=== PATIENT | female | born 1935 ===

== ENCOUNTER 2017-10-14 09:18 | Inpatient (IN) | payer MEDICARE ==
[2017-10-14] MEDS ORDERED: Labetalol HCl 100 MG/20 ML VIAL ONE (09:54)
[2017-10-14] MEDS ORDERED: Acetaminophen 325 MG TAB PO PRN (12:09)
[2017-10-14] MEDS ORDERED: Loratadine 10 MG TAB PO PRN (12:09)
[2017-10-14] MEDS ORDERED: Mag-Al 1200 mg/1200 mg/30 ML UDCUP PO PRN (12:09)
[2017-10-14] MEDS ORDERED: Chloraseptic Spray 180 ml Bottle PO PRN (12:09)
[2017-10-14] MEDS ORDERED: Ondansetron ODT 4 MG TAB PO PRN (12:09)
[2017-10-14] MEDS ORDERED: Loperamide HCl 2 MG CAP PO PRN (12:09)
[2017-10-14] MEDS ORDERED: Artificial Tears 18 DROP/0.9 ML EA EYE PRN (12:09)
[2017-10-14] MEDS ORDERED: Zolpidem Tartrate 5 MG TAB PO PRN (12:09)
[2017-10-14] MEDS ORDERED: Ondansetron HCl/PF 4 MG/2 ML Vial IVP PRN (12:09)
[2017-10-14] MEDS ORDERED: Nitroglycerin 0.4 MG TAB (25 Tab Bottle) SL PRN (12:09)
[2017-10-14] MEDS ORDERED: Milk Of Magnesia 30 ML UDCUP PO PRN (12:09)
[2017-10-14] MEDS ORDERED: Senokot 8.6 MG TAB PO PRN (12:09)
[2017-10-14] MEDS ORDERED: Eucerin (Mineral Oil/Petrolatum,White) 30 gm Jar TOP PRN (12:09)
[2017-10-14] MEDS ORDERED: hydrALAZINE 20 MG/ML VIAL SLOW IVP PRN (12:09)
[2017-10-14] MEDS ORDERED: Sodium Chloride 0.65% Nasal 44 ML BOT EA NARE PRN (12:09)
[2017-10-14] MEDS ORDERED: HYDROcodone/Acetaminophen 5/325 mg Tablet PO PRN (12:09)
[2017-10-14] MEDS ORDERED: Lisinopril 10 MG TAB PO SCH (12:15)
--- NOTE | 2017-10-14 12:38 | CT ---
CT ANGIOGRAM OF THE HEAD: HISTORY: Left-sided hemianopsia. Change in peripheral vision. COMPARISON: None. TECHNIQUE: CT angiogram of head is performed in the axial plane after IV contrast. Initial noncontrast head CT is performed. FINDINGS: There is loss of shepard-white matter differentiation involving the right frontal precentral cortex. Fi ndings may represent an acute infarct. There is no parenchymal hemorrhage. No extraaxial hematoma. No midline shift. Basilar cisterns are patent. Calvarium is intact. Adequate aeration of the sinuses and mastoid air cells. On the postcontrast images, there is no abnormal enhancement. CT ANGIOGRAM: There is symmetric enhancement and luminal diameter of the distal cervical and intracranial internal carotid arteries. Atherosclerosis of both cavernous segments is noted. There is symmetric enhancement of the A1 and M1 segments. Proximal A2 segments and proximal MCA bran ches are unremarkable. The right cervicovertebral artery is dominant. Both PICA artery origins are unremarkable. Both vert ebral arteries supply a normal-appearing basilar artery. The right P1 segment has appropriate enhanc ement and luminal diameter. 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 IMPRESSION: 1. No significant stenosis at the level of the [place]. 2. Loss of shepard-white matter differentiation involving the right frontal lobe, precentral gyrus. Th e possibility of an acute infarct in this region is raised. MRI is recommended. Results of the study were discussed with Dr. Cruz 10/14/17 at 10:15 a.m. DESHAWN REZA POS: DHRUV
[2017-10-14] MEDS ORDERED: Lorazepam 2 MG/ML VIAL SLOW IVP PRN (13:29)
[2017-10-14] MEDS ORDERED: ISOVUE-370 76%-LOCM 1 ML ONE (13:34)
--- NOTE | 2017-10-14 14:07 | HP ---
PRIMARY CARE PHYSICIAN: Dr. Gorge Urbano in [place]. REASON FOR ADMISSION: Stroke-like symptoms. HISTORY OF PRESENT ILLNESS: An 82-year-old female who has underlying history of COPD, coronary artery disease who presented to [facility] for stroke-like symptoms. Patient reports that this morning she was perfectly fine. She was going to bathroom. At that time, she felt all of a sudden stroke-like symptoms. She was feeling blurred vision. She was feeling difficulty coordination. She was feeling shaky all over. She was not able to use her hand. She was trying to call 911, but she was not able to see numbers well and she was not able to use her phone. She ultimately able to call paramedics. Subsequently, the patient was brought to [facility]. The patient was found with peripheral vision on the left side with hemianopsia. At [facility], she had CT brain which showed hypodensity within the posterior right frontal lobe consistent with age indeterminate infarction, chronic small vessel ischemic changes. Her chest x-ray was unremarkable other than bibasilar atelectasis. The patient was not given any intervention at [facility]. Subsequently, this patient was transferred to our hospital. At [place] [facility], the patient was hypertensive with blood pressure 183/ 87. She had routine blood test done, which was pretty much unremarkable. In our emergency room, subsequently, she had CT [place] [facility] [place], which was negative for any blood clot. Patient was hypertensive in our emergency room as well. Patient did not have any focal motor weakness, but patient was having difficulty performing cerebellar sign. She was having incoordination. Patient was admitted to stroke floor. PAST MEDICAL HISTORY: COPD. Patient reports that she had a heart murmur for a long period of time. She has CAD, hypertension, hypothyroidism, osteopenia and osteoarthritis, dyslipidemia, allergic rhinitis, gastroesophageal reflux disease , osteoporosis. PAST SURGICAL HISTORY: CABG, carotid endarterectomy, hysterectomy, lumpectomy x2. PAST PSYCHIATRIC HISTORY: Reviewed and negative. SOCIAL HISTORY: Patient is a former smoker. She quit smoking in 2010. She drinks alcohol occasionally. She is and lives at home by herself. No history of any illicit drug abuse. FAMILY HISTORY: No strong family history of premature coronary artery disease, stroke or cancer. ALLERGIES: Patient is allergic to BACTRIM. REVIEW OF SYSTEMS: The following complete review of systems was negative, unless otherwise mentioned in the HPI or below: Constitutional: Weight loss or gain, ability to conduct usual activities. Skin: Rash, itching. Eyes: Double vision, pain. ENT/Mouth: Nose bleeding, neck stiffness, pain, tenderness. Cardiovascular: Palpitations, dyspnea on exertion, orthopnea. Respiratory: Shortness of breath, wheezing, cough, hemoptysis, fever or night sweats. Gastrointestinal: Poor appetite, abdominal pain, heartburn, nausea, vomiting, constipation, or diarrhea. Genitourinary: Urgency, frequency, dysuria, nocturia. Musculoskeletal: Pain, swelling. Neurologic/Psychiatric: Anxiety, depression. Allergy/Immunologic: Skin rash, bleeding tendency. Please see my HPI for pertinent positive and negative. All other review of systems reviewed and negative except as mentioned in the HPI. CURRENT HOME MEDICATIONS: Aspirin 81 mg p.o. daily, vitamin C 500 mg p.o. daily , atenolol 25 mg p.o. every other day, Azelastine nasal spray daily, Symbicort 2 puff inhalation daily, calcium with vitamin D 1 tablet p.o. daily, cetirizine 10 mg daily, vitamin D3 400 unit p.o. daily, coenzyme Q10 50 mg p.o. daily, Ferrous sulfate 325 mg p.o. daily, Flonase nasal spray daily, Lasix 40 mg p.o. daily, garlic 1 capsule daily, Singulair 10 mg p.o. daily, multivitamin 1 tablet p.o. daily, fish oil 1 capsule daily; Livalo 2 mg Thursday, Thursday, Thursday; potassium chloride 20 mEq p.o. daily, Zantac 150 mg p.o. b.i.d., Actonel 150 mg p.o. daily, Faber thyroid 120 mg p.o. daily, vitamin B complex 1 tablet p.o. daily. EMERGENCY ROOM COURSE: Patient is given IV fluid at [place] [facility]. The patient is given aspirin 324 mg, DuoNeb therapy, and Tylenol 1 gram. PHYSICAL EXAMINATION: VITAL SIGNS: In our emergency room, blood pressure 198/90, pulse 103, respiratory rate 20, temperature 98.4, saturation 92% on room air, weight 71.6 kilograms. GENERAL: Patient is currently alert, awake, no obvious acute distress. HEENT: Head: Normocephalic, atraumatic. Eyes: Pupils round, reactive to light. Extraocular muscle intact. No nystagmus. ENT: Oropharynx within normal limits. Moist mucous membranes. No oral lesion, no pharyngeal erythema , no exudate. NECK: Supple, no JVD, no thyromegaly, no carotid bruit, no jugular venous distention. LUNGS: Clear to auscultation. Systolic murmur noted all over the precordium. No gallop, no rub. ABDOMEN: Soft, bowel sounds present, nontender, nondistended. No organomegaly , no mass, no suprapubic tenderness. BACK: Unremarkable, no CVA tenderness. EXTREMITIES: Upper extremity, passive movement of all joints are normal. Lower extremity, no edema. Good peripheral pulsation. SKIN: No skin rash. HEMATOLOGICAL: No lymphadenopathy. PSYCHIATRIC: Anxious affect. NEUROLOGIC: The patient does have reduced vision on the left eye, incoordination on the left side. SIGNIFICANT LABORATORY DATA AND IMAGING: Urinalysis at [facility] is unremarkable. TSH 0.02. BNP 138, troponin I 0.04, glucose 150, BUN 15, creatinine 0.76. Sodium 140, potassium 3.6, chloride 103, carbon dioxide 23, calcium 9.6, alkaline phosphatase 103, AST 22, ALT 16, total protein 7.4, albumin 4.1, magnesium 2.3. CBC: WBC 6.6, hemoglobin 15.7, platelet 230. CT brain showed hypodensity within the posterior right frontal lobe consistent with acute/subacute indeterminate infarction, chronic small vessel ischemic changes. Chest x-ray, unremarkable. EKG showing normal sinus rhythm without any acute ischemic changes. ASSESSMENT AND PLAN: 1. Stroke-like symptoms with abnormal CT brain, hypodensity in the posterior frontal lobe concerning for cerebrovascular accident. 2. Chronic obstructive pulmonary disease. 3. Coronary artery disease with a history of coronary artery bypass grafting. 4. Heart murmur, rule out valvular heart disease. 5. Dyslipidemia. 6. Claustrophobia. 7. Gastroesophageal reflux disease. 8. Hypothyroidism. 9. Osteopenia/osteoporosis. 10. Hypertension with hypertensive urgency. 11. Gastroesophageal reflux disease. PLAN: Admission to stroke floor, neuro check q.4 hourly. Neurology is not available today and tomorrow, so no Neurology consult. We will obtain MRI brain. The patient is claustrophobic and that is why she will need lorazepam 2 mg IV before MRI. If MRI is not possible because of claustrophobia, then we will avoid doing under anesthesia. We will continue with aspirin 325 mg p.o. daily. We will continue Livalo 2 mg p.o. on Thursday, Thursday, and Thursday. Check lipid profile, homocysteine level tomorrow. We will resume patient's selected home medications. DuoNeb therapy will be given. Dulera inhalation will be given. Entire stroke team will see this patient and based on above-mentioned investigation, we will consider discharge plan. We will also obtain carotid Doppler as well as echocardiography for further evaluation and we will monitor on telemetry floor. Plan of care discussed with the patient in detail. Deep venous thrombosis prophylaxis. Lovenox 40 mg subcu daily. Gastrointestinal prophylaxis. Pepcid 20 mg p.o. b.i.d. CODE STATUS: The patient is FULL CODE. Patient does not have any surrogate decision maker, though if patient does not make a decision by herself, then, her son can make decision. Disposition plan based on clinical course. We are expecting patient's stay in hospital more than 2 midnights. Plan of care discussed with the patient in detail. MTDD
--- NOTE | 2017-10-14 15:24 | ULT ---
CAROTID DOPPLER: Ultrasound doppler study with spectral analysis and velocity recordings obtained on the extracranial carotid arteries. Indication: CVA. FINDINGS: Scattered echogenic plaque seen in both carotid systems. Velocities are borderline in the right inter nal carotid artery recorded at 123 cm/sec systolic. The velocity is approaching hemodynamically signi ficance at approximately 50% diameter stenosis. Left ICA velocities are within normal range. ECA velocities are increased bilaterally. The vertebrals are antegrade. IMPRESSION: Upper normal velocities in the right internal carotid artery. Scattered echogenic plaque bilaterally. POS: DHRUV
[2017-10-14 15:41] VITALS: BMI 27.7
--- NOTE | 2017-10-14 16:46 | MRI ---
MRI BRAIN WITHOUT CONTRAST: HISTORY: CVA. Left-sided hemianopsia. COMPARISON: CTA same day. FINDINGS: There are multifocal acute infarctions seen on the diffusion weighted imaging sequence. This involve s the right precentral gyrus as well as the right medial occipital lobe and the right thalamus. Ther e is also infarction of the inferior right temporal lobe and mesial right temporal lobe. The susceptibility may be due to abnormal areas of hemorrhage. Old left cerebellar infarction. [place]anne ventricular and deep white matter microangiopathic changes. Orbits are normal. No hydrocephalus. No midline shift or mass effect. IMPRESSION: Multifocal right-sided infarctions involving the right mesial temporal lobe, inferior temporal lobe, medial occipital lobe, and precentral gyrus of the frontal lobe. This may be the sequelae of atherom atous emboli. POS: DHRUV
[2017-10-14] MEDS ORDERED: Atorvastatin Calcium 40 MG TAB PO SCH (21:00)
[2017-10-14] MEDS: Famotidine 20 MG TAB PO SCH (21:29)
[2017-10-15 05:25] LABS: #Basophils 0.1 thou/uL (0.0-0.2); #Eosinphils 0.2 thou/uL (0.0-0.7); #Lymphocytes 1.4 thou/uL (1.20-3.40); #Monocytes 0.6 thou/uL (0.11-0.59); #Neutrophils 5.9 thou/uL (1.40-6.50); %Basophils 0.9 % (0.0-1.0); %Eosinophils 2.8 % (0.0-10.0); %Monocytes 6.8 % (0.0-10.0); %Neutrophils 72.6 % (42.0-75.0); Hemoglobin 14.7 g/dL (12.0-16.0); Mean Corpuscular HGB CONC 34.2 g/dL (32.0-36.0); Mean Corpuscular Hemoglobin 31.6 pg (27.0-31.0); Mean Corpuscular Volume 92.3 fl (81.0-99.0); Mean Platelet Volume 7.7 fL (7.4-10.4); Platelet Count 179 thou/uL (130-400); Red Blood Cell (RBC) Count 4.65 mill/uL (4.20-5.40); White Blood Cell (WBC) Count 8.2 thou/uL (4.8-10.8)
[2017-10-15 05:41] LABS: ALT (SGPT) 14 U/L (8-55); AST (SGOT) 21 U/L (5-34); Albumin 3.6 g/dL (3.4-4.8); Alkaline Phosphatase 82 U/L (40-150); Anion Gap 12 mmol/L (10-20); BUN (Urea Nitrogen) 8 mg/dL (9.8-20.1); Bilirubin, Total 0.6 mg/dL (0.2-1.2); Calc. Creatinine Clearance 78 mL/min (70-130); Calcium 9.3 mg/dL (7.8-10.44); Carbon Dioxide 25 mmol/L (23-31); Cardiac Risk 2.4 (Less than 4.5); Chloride 105 mmol/L (98-107); Cholesterol 181 mg/dl (< 200 Desired); Estimated GFR-MDRD Greater than 90; Globulin 2.7 g/dL (2.4-3.5); Glucose 136 mg/dL (83-110); HDL Cholesterol 76 mg/dL (>60 Neg Risk); LDL Cholesterol, Calculated 90 mg/dL; Potassium 3.9 mmol/L (3.5-5.1); Protein, Total 6.3 g/dL (6.0-8.3); Sodium 138 mmol/L (136-145); Triglycerides 73 mg/dL (Less than 150)
[2017-10-15] MEDS ORDERED: Doxylamine 25 MG TAB PO PRN (07:18)
[2017-10-15] MEDS ORDERED: Cetirizine HCl 10 MG TAB PO SCH (09:00)
[2017-10-15] MEDS ORDERED: Non-Formulary Item 1 EACH (Ubidecarenone [Coq-10] 200 MG) PO SCH (09:00)
[2017-10-15] MEDS ORDERED: Non-Formulary Item 1 EACH (Budesonide-Formoterol [Symbicort 160-4.5] 2 INHALER) INH SCH (09:00)
[2017-10-15] MEDS ORDERED: Non-Formulary Item 1 EACH (Pitavastatin Calcium 2 MG) PO SCH (09:00)
[2017-10-15] MEDS ORDERED: PSYLLIUM HUSK PO SCH (09:00)
[2017-10-15] MEDS ORDERED: ACIDOPH PARACASEI B LACTIS PO SCH (09:00)
[2017-10-15] MEDS ORDERED: Non-Formulary Item 1 EACH (Potassium Chloride [Potassium Chloride] 10 MEQ) PO SCH (09:00)
--- NOTE | 2017-10-15 10:08 | PDOC.PN ---
- Subjective Encounter Start Date: 10/15/17 Encounter Start Time: 06:40 -: old records requested/rev Patient seen and examined for acute CVA. No new complaints. No overnight events - Objective Resuscitation Status: Resuscitation Status FULL:Full Resuscitation MAR Reviewed: Yes Vital Signs & Weight: Vital Signs (12 hours) Temp Pulse Resp BP BP Pulse Ox 10/15/17 07:23 98.2 F 80 20 138/57 L 92 L 10/15/17 04:54 92 L 10/15/17 03:35 99.2 F 85 16 140/69 89 L 10/14/17 23:35 99.0 F 85 16 131/64 94 L Weight Weight 156 lb 8.451 oz Result Diagrams: 10/15/17 04:48 10/15/17 04:48 Radiology Reviewed by me: Yes (MRI brain-multifocal infract on right side) EKG Reviewed by me: Yes (nsr) Phys Exam - Physical Examination Constitutional: NAD HEENT: PERRLA, moist MMs, sclera anicteric Neck: no nodes, no JVD, supple, full ROM Respiratory: no wheezing, no rales, no rhonchi, clear to auscultation bilateral Cardiovascular: RRR, no significant murmur, no rub Gastrointestinal: soft, non-tender, no distention, positive bowel sounds Musculoskeletal: no edema, pulses present Neurological: moves all 4 limbs Lymphatic: no nodes Psychiatric: normal affect, A&O x 3 Skin: no rash, normal turgor, cap refill <2 seconds Dx/Plan (1) Acute CVA (cerebrovascular accident) Code(s): I63.9 - CEREBRAL INFARCTION, UNSPECIFIED Status: Acute (2) Anxiety and depression Code(s): F41.9 - ANXIETY DISORDER, UNSPECIFIED; F32.9 - MAJOR DEPRESSIVE DISORDER, SINGLE EPISODE, UNSPECIFIED Status: Chronic (3) CAD (coronary artery disease) Code(s): I25.10 - ATHSCL HEART DISEASE OF [place] CORONARY ARTERY W/O ANG PCTRS Status: Chronic (4) COPD (chronic obstructive pulmonary disease) Status: Chronic (5) Carotid atherosclerosis Code(s): I65.29 - OCCLUSION AND STENOSIS OF UNSPECIFIED CAROTID ARTERY Status : Chronic (6) Dyslipidemia Code(s): E78.5 - HYPERLIPIDEMIA, UNSPECIFIED Status: Chronic (7) Hypertension Code(s): I10 - ESSENTIAL (PRIMARY) HYPERTENSION Status: Chronic (8) Hypothyroidism Code(s): E03.9 - HYPOTHYROIDISM, UNSPECIFIED Status: Chronic - Plan cont current plan of care, plan discussed w/ family, 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 Review of Systems - Review of Systems Eyes: negative: Pain, Vision Change, Conjunctivae Inflammation, Eyelid Inflammation, Redness, Other ENT: negative: Ear Pain, Ear Discharge, Nose Pain, Nose Discharge, Nose Congestion, Mouth Pain, Mouth Swelling, Throat Pain, Throat Swelling, Other Respiratory: negative: Cough, Dry, Shortness of Breath, Hemoptysis, SOB with Excertion, Pleuritic Pain, Sputum, Wheezing Cardiovascular: negative: chest pain, palpitations, orthopnea, paroxysmal nocturnal dyspnea, edema, light headedness, other Gastrointestinal: negative: Nausea, Vomiting, Abdominal Pain, Diarrhea, Constipation, Melena, Hematochezia, Other Genitourinary: negative: Dysuria, Frequency, Incontinence, Hematuria, Retention , Other Musculoskeletal: negative: Neck Pain, Shoulder Pain, Arm Pain, Back Pain, Hand Pain, Leg Pain, Foot Pain, Other Skin: negative: Rash, Lesions, Matthew, Bruising, Other Neurological: Incoordination. negative: Weakness, Numbness, Change in Speech, Confusion, Seizures, Other - Medications/Allergies Allergies/Adverse Reactions: Allergies Allergy/AdvReac Type Severity Reaction Status Date / Time sulfamethoxazole Allergy Verified 10/14/17 13:02 [From Bactrim] trimethoprim [From Bactrim] Allergy Verified 10/14/17 13:02 Medications: Current Medications Acetaminophen (Tylenol) 650 mg PO Q4H PRN PRN Reason: Headache/Fever or Pain Hydrocodone Bitart/Acetaminophen ([place] 5/325) 1 tab PO Q4H PRN PRN Reason: Moderate Pain (4-6) Acidophilus (Floranex) 1 tab PO DAILY [facility] Al Hydroxide/Mg Hydroxide (Maalox) 30 ml PO Q6H PRN PRN Reason: Heartburn or Indigestion Artificial Tears (Tears Naturale) 0 drop EA EYE PRN PRN PRN Reason: Dry Eyes Aspirin (Aspirin) 325 mg PO DAILY [facility] Atenolol (Tenormin) 12.5 mg PO DAILY [facility] Atorvastatin Calcium (Lipitor) 10 mg PO HS [facility] Coenzyme Q10 (Coenzyme Q10) 200 mg PO DAILY [facility] Doxylamine Succinate (Unisom) 12.5 mg PO HS PRN PRN Reason: Insomnia Enoxaparin Sodium (Lovenox) 40 mg SC 0900 [facility] Famotidine (Pepcid) 20 mg PO BID [facility] Last Admin: 10/14/17 21:29 Dose: 20 mg Furosemide (Lasix) 20 mg PO DAILY [facility] Hydralazine HCl (Apresoline) 10 mg SLOW IVP Q4H PRN PRN Reason: Systolic BP > 180 Lisinopril (Zestril) 10 mg PO DAILY [facility] Loperamide HCl (Imodium) 2 mg PO PRN PRN PRN Reason: Diarrhea/Loose Stools Loratadine (Claritin) 10 mg PO DAILY [facility] Magnesium Hydroxide (Milk Of Magnesium) 30 ml PO DAILYPRN PRN PRN Reason: Constipation Mineral Oil/White Petrolatum (Eucerin Cream) 0 gm TOP BIDPRN PRN PRN Reason: Dry Skin Mometasone Furoate/Formoterol Fumar (Dulera 200 Mcg/5 Mcg Inhaler) 2 puff INH BID-RT [facility] Montelukast Sodium (Singulair) 10 mg PO DAILY [facility] Nitroglycerin (Nitrostat) 0.4 mg SL Q5MIN PRN PRN Reason: Chest Pain Ondansetron HCl (Zofran Odt) 4 mg PO Q6H PRN PRN Reason: Nausea/Vomiting Ondansetron HCl (Zofran) 4 mg IVP Q6H PRN PRN Reason: Nausea/Vomiting Phenol (Chloraseptic [place] 180 Ml Bot) 0 ml PO PRN PRN PRN Reason: Sore Throat Potassium Chloride (Klor-Con 10) 10 meq PO DAILY [facility] Psyllium Hydrophilic Mucilloid (Metamucil) 1 pk PO DAILY [facility] Senna (Senokot) 2 tab PO HSPRN PRN PRN Reason: Constipation Sodium Chloride ([place] Nasal [place] 0.65%) 0 ml EA NARE QIDPRN PRN PRN Reason: Nasal Congestion Sodium Chloride (Flush - Normal Saline) 10 ml IVF Q12HR [facility] Last Admin: 10/14/17 21:29 Dose: 10 ml Sodium Chloride (Flush - Normal Saline) 10 ml IVF PRN PRN PRN Reason: Saline Flush Thyroid ([place] Thyroid) 90 mg PO DAILY [facility] Zolpidem Tartrate (Ambien) 5 mg PO HSPRN PRN PRN Reason: Insomnia
[2017-10-15] MEDS: Furosemide 20 MG TAB PO SCH (10:18)
[2017-10-15] MEDS: Atenolol 25 MG TAB PO SCH (10:19)
[2017-10-15] MEDS: Ubidecarenone 50 MG CAP PO SCH (10:19)
[2017-10-15] MEDS: Famotidine 20 MG TAB PO SCH ×2 (10:20→21:32)
[2017-10-15] MEDS: Lactinex Tablet PO SCH (10:20)
[2017-10-15] MEDS: Potassium Chloride 10 MEQ TAB PO SCH (10:20)
[2017-10-15] MEDS: Montelukast Sodium 10 mg Tablet PO SCH (10:21)
[2017-10-15] MEDS: Enoxaparin Sodium 40 MG/0.4 ML SYRINGE SC SCH (10:21)
[2017-10-15] MEDS: Metamucil PACK PO SCH (10:23)
[2017-10-15] MEDS: Loratadine 10 MG TAB PO SCH (10:23)
[2017-10-15] MEDS: Aspirin 325 MG TAB PO SCH (10:23)
[2017-10-15] MEDS: Lisinopril 10 MG TAB PO SCH (10:23)
[2017-10-15] MEDS: Mometasone/Formoterol 120 PUFF INHALER INH SCH (17:02)
[2017-10-15] MEDS ORDERED: Atorvastatin Calcium 10 MG TAB PO SCH (21:00)
[2017-10-16] MEDS: Enoxaparin Sodium 40 MG/0.4 ML SYRINGE SC SCH (09:21)
[2017-10-16] MEDS: Atenolol 25 MG TAB PO SCH (09:22)
[2017-10-16] MEDS: Aspirin 325 MG TAB PO SCH (09:22)
[2017-10-16] MEDS: Ubidecarenone 50 MG CAP PO SCH (09:22)
[2017-10-16] MEDS: Potassium Chloride 10 MEQ TAB PO SCH (09:27)
[2017-10-16] MEDS: Lactinex Tablet PO SCH (09:27)
[2017-10-16] MEDS: Famotidine 20 MG TAB PO SCH ×2 (09:27→20:04)
[2017-10-16] MEDS: Loratadine 10 MG TAB PO SCH (09:28)
[2017-10-16] MEDS: Lisinopril 10 MG TAB PO SCH (09:29)
[2017-10-16] MEDS: Montelukast Sodium 10 mg Tablet PO SCH (09:29)
[2017-10-16] MEDS: Furosemide 20 MG TAB PO SCH (09:29)
[2017-10-16] MEDS: Metamucil PACK PO SCH (09:30)
[2017-10-16] MEDS: Mometasone/Formoterol 120 PUFF INHALER INH SCH ×2 (10:02→19:12)
--- NOTE | 2017-10-16 11:12 | PDOC.PN ---
- Subjective Encounter Start Date: 10/16/17 Encounter Start Time: 09:20 Patient seen and examined for CVA. c/o leg cramp with lipitor, No overnight events - Objective Resuscitation Status: Resuscitation Status FULL:Full Resuscitation MAR Reviewed: Yes Vital Signs & Weight: Vital Signs (12 hours) Temp Pulse Resp BP BP BP Pulse Ox 10/16/17 10:04 96 10/16/17 10:02 72 20 96 10/16/17 09:29 122/66 10/16/17 09:22 76 122/66 10/16/17 08:59 98.0 F 76 20 122/68 94 L 10/16/17 04:00 98.1 F 79 18 118/51 L 94 L 10/15/17 23:59 97.3 F L 82 18 134/59 L 96 Weight Weight 156 lb 8.451 oz Result Diagrams: 10/15/17 04:48 10/15/17 04:48 EKG Reviewed by me: Yes (nsr) Phys Exam - Physical Examination Constitutional: NAD HEENT: PERRLA, moist MMs, sclera anicteric Neck: no JVD, supple Respiratory: no wheezing, no rales, no rhonchi Cardiovascular: RRR, no significant murmur, no rub Gastrointestinal: soft, non-tender, no distention, positive bowel sounds Musculoskeletal: no edema, pulses present Neurological: non-focal, normal sensation, moves all 4 limbs Lymphatic: no nodes Psychiatric: normal affect, A&O x 3 Skin: no rash, normal turgor Dx/Plan (1) Acute CVA (cerebrovascular accident) Code(s): I63.9 - CEREBRAL INFARCTION, UNSPECIFIED Status: Acute (2) Anxiety and depression Code(s): F41.9 - ANXIETY DISORDER, UNSPECIFIED; F32.9 - MAJOR DEPRESSIVE DISORDER, SINGLE EPISODE, UNSPECIFIED Status: Chronic (3) CAD (coronary artery disease) Code(s): I25.10 - ATHSCL HEART DISEASE OF [place] CORONARY ARTERY W/O ANG PCTRS Status: Chronic (4) COPD (chronic obstructive pulmonary disease) Status: Chronic (5) Carotid atherosclerosis Code(s): I65.29 - OCCLUSION AND STENOSIS OF UNSPECIFIED CAROTID ARTERY Status : Chronic (6) Dyslipidemia Code(s): E78.5 - HYPERLIPIDEMIA, UNSPECIFIED Status: Chronic (7) Hypertension Code(s): I10 - ESSENTIAL (PRIMARY) HYPERTENSION Status: Chronic (8) Hypothyroidism Code(s): E03.9 - HYPOTHYROIDISM, UNSPECIFIED Status: Chronic - Plan cont current plan of care, 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 Review of Systems - Review of Systems ENT: negative: Ear Pain, Ear Discharge, Nose Pain, Nose Discharge, Nose Congestion, Mouth Pain, Mouth Swelling, Throat Pain, Throat Swelling, Other Respiratory: negative: Cough, Dry, Shortness of Breath, Hemoptysis, SOB with Excertion, Pleuritic Pain, Sputum, Wheezing Cardiovascular: negative: chest pain, palpitations, orthopnea, paroxysmal nocturnal dyspnea, edema, light headedness, other Gastrointestinal: negative: Nausea, Vomiting, Abdominal Pain, Diarrhea, Constipation, Melena, Hematochezia, Other Genitourinary: negative: Dysuria, Frequency, Incontinence, Hematuria, Retention , Other Musculoskeletal: negative: Neck Pain, Shoulder Pain, Arm Pain, Back Pain, Hand Pain, Leg Pain, Foot Pain, Other Skin: negative: Rash, Lesions, Matthew, Bruising, Other - Medications/Allergies Allergies/Adverse Reactions: Allergies Allergy/AdvReac Type Severity Reaction Status Date / Time sulfamethoxazole Allergy Verified 10/14/17 13:02 [From Bactrim] trimethoprim [From Bactrim] Allergy Verified 10/14/17 13:02 Medications: Current Medications Acetaminophen (Tylenol) 650 mg PO Q4H PRN PRN Reason: Headache/Fever or Pain Hydrocodone Bitart/Acetaminophen ([place] 5/325) 1 tab PO Q4H PRN PRN Reason: Moderate Pain (4-6) Acidophilus (Floranex) 1 tab PO DAILY [facility] Last Admin: 10/16/17 09:27 Dose: 1 tab Al Hydroxide/Mg Hydroxide (Maalox) 30 ml PO Q6H PRN PRN Reason: Heartburn or Indigestion Artificial Tears (Tears Naturale) 0 drop EA EYE PRN PRN PRN Reason: Dry Eyes Aspirin (Aspirin) 325 mg PO DAILY [facility] Last Admin: 10/16/17 09:22 Dose: 325 mg Atenolol (Tenormin) 12.5 mg PO DAILY [facility] Last Admin: 10/16/17 09:22 Dose: 12.5 mg Atorvastatin Calcium (Lipitor) 10 mg PO HS [facility] Last Admin: 10/15/17 21:32 Dose: 10 mg Coenzyme Q10 (Coenzyme Q10) 200 mg PO DAILY [facility] Last Admin: 10/16/17 09:22 Dose: 200 mg Doxylamine Succinate (Unisom) 12.5 mg PO HS PRN PRN Reason: Insomnia Enoxaparin Sodium (Lovenox) 40 mg SC 0900 [facility] Last Admin: 10/16/17 09:21 Dose: 40 mg Famotidine (Pepcid) 20 mg PO BID [facility] Last Admin: 10/16/17 09:27 Dose: 20 mg Furosemide (Lasix) 20 mg PO DAILY [facility] Last Admin: 10/16/17 09:29 Dose: 20 mg Hydralazine HCl (Apresoline) 10 mg SLOW IVP Q4H PRN PRN Reason: Systolic BP > 180 Lisinopril (Zestril) 10 mg PO DAILY [facility] Last Admin: 10/16/17 09:29 Dose: Not Given Loperamide HCl (Imodium) 2 mg PO PRN PRN PRN Reason: Diarrhea/Loose Stools Loratadine (Claritin) 10 mg PO DAILY [facility] Last Admin: 10/16/17 09:28 Dose: 10 mg Magnesium Hydroxide (Milk Of Magnesium) 30 ml PO DAILYPRN PRN PRN Reason: Constipation Mineral Oil/White Petrolatum (Eucerin Cream) 0 gm TOP BIDPRN PRN PRN Reason: Dry Skin Mometasone Furoate/Formoterol Fumar (Dulera 200 Mcg/5 Mcg Inhaler) 2 puff INH BID-RT [facility] Last Admin: 10/16/17 10:02 Dose: 2 puff Montelukast Sodium (Singulair) 10 mg PO DAILY [facility] Last Admin: 10/16/17 09:29 Dose: 10 mg Nitroglycerin (Nitrostat) 0.4 mg SL Q5MIN PRN PRN Reason: Chest Pain Ondansetron HCl (Zofran Odt) 4 mg PO Q6H PRN PRN Reason: Nausea/Vomiting Ondansetron HCl (Zofran) 4 mg IVP Q6H PRN PRN Reason: Nausea/Vomiting Phenol (Chloraseptic [place] 180 Ml Bot) 0 ml PO PRN PRN PRN Reason: Sore Throat Potassium Chloride (Klor-Con 10) 10 meq PO DAILY [facility] Last Admin: 10/16/17 09:27 Dose: 10 meq Psyllium Hydrophilic Mucilloid (Metamucil) 1 pk PO DAILY [facility] Last Admin: 10/16/17 09:30 Dose: Not Given Senna (Senokot) 2 tab PO HSPRN PRN PRN Reason: Constipation Sodium Chloride ([place] Nasal [place] 0.65%) 0 ml EA NARE QIDPRN PRN PRN Reason: Nasal Congestion Sodium Chloride (Flush - Normal Saline) 10 ml IVF Q12HR [facility] Last Admin: 10/16/17 09:30 Dose: 10 ml Sodium Chloride (Flush - Normal Saline) 10 ml IVF PRN PRN PRN Reason: Saline Flush Thyroid ([place] Thyroid) 90 mg PO DAILY [facility] Last Admin: 10/16/17 09:26 Dose: 90 mg Zolpidem Tartrate (Ambien) 5 mg PO HSPRN PRN PRN Reason: Insomnia
[2017-10-17] MEDS: Mometasone/Formoterol 120 PUFF INHALER INH SCH ×2 (08:17→19:08)
[2017-10-17] MEDS: Lactinex Tablet PO SCH (08:57)
[2017-10-17] MEDS: Ubidecarenone 50 MG CAP PO SCH (08:57)
[2017-10-17] MEDS: Metamucil PACK PO SCH (08:57)
[2017-10-17] MEDS: Enoxaparin Sodium 40 MG/0.4 ML SYRINGE SC SCH (08:57)
[2017-10-17] MEDS: Loratadine 10 MG TAB PO SCH (08:57)
[2017-10-17] MEDS: Montelukast Sodium 10 mg Tablet PO SCH (08:57)
[2017-10-17] MEDS: Potassium Chloride 10 MEQ TAB PO SCH (08:58)
[2017-10-17] MEDS: Lisinopril 10 MG TAB PO SCH (08:58)
[2017-10-17] MEDS: Atenolol 25 MG TAB PO SCH (08:58)
[2017-10-17] MEDS: Famotidine 20 MG TAB PO SCH ×2 (08:58→20:29)
[2017-10-17] MEDS: Furosemide 20 MG TAB PO SCH (08:58)
[2017-10-17] MEDS: Aspirin 325 MG TAB PO SCH (08:58)
--- NOTE | 2017-10-17 09:23 | PDOC.PN ---
- Subjective Encounter Start Date: 10/17/17 Encounter Start Time: 06:40 Patient seen and examined for CVA. No new complaints. No overnight events - Objective Resuscitation Status: Resuscitation Status FULL:Full Resuscitation MAR Reviewed: Yes Vital Signs & Weight: Vital Signs (12 hours) Temp Pulse Resp BP BP Pulse Ox 10/17/17 08:58 70 122/66 10/17/17 08:20 92 L 10/17/17 08:17 70 20 92 L 10/17/17 07:55 98.9 F 80 20 104/54 L 90 L 10/17/17 03:49 97.8 F 76 18 147/62 H 94 L 10/16/17 23:03 97.5 F L 65 16 132/61 93 L Weight Weight 156 lb 8.451 oz I&O: 10/16/17 10/17/17 10/18/17 06:59 06:59 06:59 Intake Total 870 Balance 870 Result Diagrams: 10/15/17 04:48 10/15/17 04:48 EKG Reviewed by me: Yes (nsr) Phys Exam - Physical Examination Constitutional: NAD HEENT: PERRLA, moist MMs, sclera anicteric Neck: no JVD, supple Respiratory: no wheezing, no rales, no rhonchi Cardiovascular: RRR, no significant murmur, no rub Gastrointestinal: soft, non-tender, no distention, positive bowel sounds Musculoskeletal: no edema, pulses present Neurological: non-focal, normal sensation, moves all 4 limbs left side hemianopsia Lymphatic: no nodes Psychiatric: normal affect, A&O x 3 Skin: no rash, normal turgor Dx/Plan (1) Acute CVA (cerebrovascular accident) Code(s): I63.9 - CEREBRAL INFARCTION, UNSPECIFIED Status: Acute (2) Anxiety and depression Code(s): F41.9 - ANXIETY DISORDER, UNSPECIFIED; F32.9 - MAJOR DEPRESSIVE DISORDER, SINGLE EPISODE, UNSPECIFIED Status: Chronic (3) CAD (coronary artery disease) Code(s): I25.10 - ATHSCL HEART DISEASE OF [place] CORONARY ARTERY W/O ANG PCTRS Status: Chronic (4) COPD (chronic obstructive pulmonary disease) Status: Chronic (5) Carotid atherosclerosis Code(s): I65.29 - OCCLUSION AND STENOSIS OF UNSPECIFIED CAROTID ARTERY Status : Chronic (6) Dyslipidemia Code(s): E78.5 - HYPERLIPIDEMIA, UNSPECIFIED Status: Chronic (7) Hypertension Code(s): I10 - ESSENTIAL (PRIMARY) HYPERTENSION Status: Chronic (8) Hypothyroidism Code(s): E03.9 - HYPOTHYROIDISM, UNSPECIFIED Status: Chronic - Plan 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 Review of Systems - Review of Systems Constitutional: negative: fever, chills, sweats, weakness, malaise, other Eyes: Vision Change. negative: Pain, Conjunctivae Inflammation, Eyelid Inflammation, Redness, Other ENT: negative: Ear Pain, Ear Discharge, Nose Pain, Nose Discharge, Nose Congestion, Mouth Pain, Mouth Swelling, Throat Pain, Throat Swelling, Other Respiratory: negative: Cough, Dry, Shortness of Breath, Hemoptysis, SOB with Excertion, Pleuritic Pain, Sputum, Wheezing Cardiovascular: negative: chest pain, palpitations, orthopnea, paroxysmal nocturnal dyspnea, edema, light headedness, other Gastrointestinal: negative: Nausea, Vomiting, Abdominal Pain, Diarrhea, Constipation, Melena, Hematochezia, Other Genitourinary: negative: Dysuria, Frequency, Incontinence, Hematuria, Retention , Other Musculoskeletal: negative: Neck Pain, Shoulder Pain, Arm Pain, Back Pain, Hand Pain, Leg Pain, Foot Pain, Other Skin: negative: Rash, Lesions, Matthew, Bruising, Other Neurological: negative: Weakness, Numbness, Incoordination, Change in Speech, Confusion, Seizures, Other - Medications/Allergies Allergies/Adverse Reactions: Allergies Allergy/AdvReac Type Severity Reaction Status Date / Time sulfamethoxazole Allergy Verified 10/14/17 13:02 [From Bactrim] trimethoprim [From Bactrim] Allergy Verified 10/14/17 13:02 Medications: Current Medications Acetaminophen (Tylenol) 650 mg PO Q4H PRN PRN Reason: Headache/Fever or Pain Hydrocodone Bitart/Acetaminophen ([place] 5/325) 1 tab PO Q4H PRN PRN Reason: Moderate Pain (4-6) Acidophilus (Floranex) 1 tab PO DAILY [facility] Last Admin: 10/17/17 08:57 Dose: 1 tab Al Hydroxide/Mg Hydroxide (Maalox) 30 ml PO Q6H PRN PRN Reason: Heartburn or Indigestion Artificial Tears (Tears Naturale) 0 drop EA EYE PRN PRN PRN Reason: Dry Eyes Aspirin (Aspirin) 325 mg PO DAILY [facility] Last Admin: 10/17/17 08:58 Dose: 325 mg Atenolol (Tenormin) 12.5 mg PO DAILY [facility] Last Admin: 10/17/17 08:58 Dose: 12.5 mg Coenzyme Q10 (Coenzyme Q10) 200 mg PO DAILY [facility] Last Admin: 10/17/17 08:57 Dose: 200 mg Doxylamine Succinate (Unisom) 12.5 mg PO HS PRN PRN Reason: Insomnia Enoxaparin Sodium (Lovenox) 40 mg SC 0900 [facility] Last Admin: 10/17/17 08:57 Dose: 40 mg Famotidine (Pepcid) 20 mg PO BID [facility] Last Admin: 10/17/17 08:58 Dose: 20 mg Furosemide (Lasix) 20 mg PO DAILY [facility] Last Admin: 10/17/17 08:58 Dose: 20 mg Hydralazine HCl (Apresoline) 10 mg SLOW IVP Q4H PRN PRN Reason: Systolic BP > 180 Lisinopril (Zestril) 10 mg PO DAILY [facility] Last Admin: 10/17/17 08:58 Dose: 10 mg Loperamide HCl (Imodium) 2 mg PO PRN PRN PRN Reason: Diarrhea/Loose Stools Loratadine (Claritin) 10 mg PO DAILY [facility] Last Admin: 10/17/17 08:57 Dose: 10 mg Magnesium Hydroxide (Milk Of Magnesium) 30 ml PO DAILYPRN PRN PRN Reason: Constipation Mineral Oil/White Petrolatum (Eucerin Cream) 0 gm TOP BIDPRN PRN PRN Reason: Dry Skin Mometasone Furoate/Formoterol Fumar (Dulera 200 Mcg/5 Mcg Inhaler) 2 puff INH BID-RT [facility] Last Admin: 10/17/17 08:17 Dose: 2 puff Montelukast Sodium (Singulair) 10 mg PO DAILY [facility] Last Admin: 10/17/17 08:57 Dose: 10 mg Nitroglycerin (Nitrostat) 0.4 mg SL Q5MIN PRN PRN Reason: Chest Pain Ondansetron HCl (Zofran Odt) 4 mg PO Q6H PRN PRN Reason: Nausea/Vomiting Ondansetron HCl (Zofran) 4 mg IVP Q6H PRN PRN Reason: Nausea/Vomiting Phenol (Chloraseptic [place] 180 Ml Bot) 0 ml PO PRN PRN PRN Reason: Sore Throat Potassium Chloride (Klor-Con 10) 10 meq PO DAILY [facility] Last Admin: 10/17/17 08:58 Dose: 10 meq Psyllium Hydrophilic Mucilloid (Metamucil) 1 pk PO DAILY [facility] Last Admin: 10/17/17 08:57 Dose: Not Given Senna (Senokot) 2 tab PO HSPRN PRN PRN Reason: Constipation Sodium Chloride ([place] Nasal [place] 0.65%) 0 ml EA NARE QIDPRN PRN PRN Reason: Nasal Congestion Sodium Chloride (Flush - Normal Saline) 10 ml IVF Q12HR [facility] Last Admin: 10/17/17 08:58 Dose: 10 ml Sodium Chloride (Flush - Normal Saline) 10 ml IVF PRN PRN PRN Reason: Saline Flush Thyroid ([place] Thyroid) 90 mg PO DAILY [facility] Last Admin: 10/17/17 08:57 Dose: 90 mg Zolpidem Tartrate (Ambien) 5 mg PO HSPRN PRN PRN Reason: Insomnia
[2017-10-17] MEDS ORDERED: PITAVASTATIN 2 MG PO SCH (20:00)
[2017-10-18] MEDS: Montelukast Sodium 10 mg Tablet PO SCH (09:24)
[2017-10-18] MEDS: Ubidecarenone 50 MG CAP PO SCH (09:24)
[2017-10-18] MEDS: Aspirin 325 MG TAB PO SCH (09:25)
[2017-10-18] MEDS: Potassium Chloride 10 MEQ TAB PO SCH (09:25)
[2017-10-18] MEDS: Loratadine 10 MG TAB PO SCH (09:25)
[2017-10-18] MEDS: Atenolol 25 MG TAB PO SCH (09:25)
[2017-10-18] MEDS: Lactinex Tablet PO SCH (09:25)
[2017-10-18] MEDS: Lisinopril 10 MG TAB PO SCH (09:26)
[2017-10-18] MEDS: Famotidine 20 MG TAB PO SCH ×2 (09:26→21:18)
[2017-10-18] MEDS: Furosemide 20 MG TAB PO SCH (09:26)
[2017-10-18] MEDS: Enoxaparin Sodium 40 MG/0.4 ML SYRINGE SC SCH (09:26)
[2017-10-18] MEDS: Metamucil PACK PO SCH (09:27)
[2017-10-18] MEDS: Mometasone/Formoterol 120 PUFF INHALER INH SCH ×2 (09:46→19:26)
--- NOTE | 2017-10-18 10:51 | PDOC.PN ---
- Subjective Encounter Start Date: 10/18/17 Encounter Start Time: 09:40 Subjective: is moving all extremities -: no specific weakness, sob, palp or chest pain -: is amb with PT - Objective Resuscitation Status: Resuscitation Status FULL:Full Resuscitation MAR Reviewed: Yes Vital Signs & Weight: Vital Signs (12 hours) Temp Pulse Resp BP BP Pulse Ox 10/18/17 09:48 93 L 10/18/17 09:46 76 20 93 L 10/18/17 09:26 133/76 10/18/17 09:25 72 133/76 10/18/17 08:00 97.6 F 76 20 10/18/17 07:55 97.6 F 68 18 94/45 L 89 L 10/18/17 05:33 70 18 131/50 L 94 L Weight Weight 156 lb 8.451 oz I&O: 10/17/17 10/18/17 10/19/17 06:59 06:59 06:59 Intake Total 870 740 Balance 870 740 Result Diagrams: 10/15/17 04:48 10/15/17 04:48 Phys Exam - Physical Examination HEENT: PERRLA, moist MMs Neck: no JVD, supple Respiratory: no wheezing, no rales Cardiovascular: RRR, no significant murmur Gastrointestinal: soft, non-tender, positive bowel sounds Musculoskeletal: no edema, pulses present Neurological: non-focal, moves all 4 limbs Psychiatric: normal affect, A&O x 3 Dx/Plan (1) Acute CVA (cerebrovascular accident) Code(s): I63.9 - CEREBRAL INFARCTION, UNSPECIFIED Status: Acute Comment: embolic infarcts to right temp, occipital lobe and precentral gyrus of frontal lobe (2) CAD (coronary artery disease) Code(s): I25.10 - ATHSCL HEART DISEASE OF [place] CORONARY ARTERY W/O ANG PCTRS Status: Chronic Qualifiers: Coronary Disease-Associated Artery/Lesion type: bypass graft [place] vs. transplanted heart: [place] heart Associated angina: without angina Qualified Code(s): I25.810 - Atherosclerosis of coronary artery bypass graft(s) without angina pectoris (3) COPD (chronic obstructive pulmonary disease) Status: Chronic Qualifiers: COPD type: unspecified COPD Qualified Code(s): J44.9 - Chronic obstructive pulmonary disease, unspecified (4) Carotid atherosclerosis Code(s): I65.29 - OCCLUSION AND STENOSIS OF UNSPECIFIED CAROTID ARTERY Status : Chronic Comment: has left carotid endartectomy, f/u with (5) Dyslipidemia Code(s): E78.5 - HYPERLIPIDEMIA, UNSPECIFIED Status: Chronic (6) Hypertension Code(s): I10 - ESSENTIAL (PRIMARY) HYPERTENSION Status: Chronic Qualifiers: Hypertension type: essential hypertension Qualified Code(s): I10 - Essential (primary) hypertension (7) Hypothyroidism Code(s): E03.9 - HYPOTHYROIDISM, UNSPECIFIED Status: Chronic Qualifiers: Hypothyroidism type: unspecified Qualified Code(s): E03.9 - Hypothyroidism , unspecified - Plan awaiting rehab placement, echo results pending -: is on asp, pitavastatin -: continue atenolol, lisinopril and lasix -: to mobilize as tolerated -: is eating orally with no dysphagia * . Review of Systems - Medications/Allergies Allergies/Adverse Reactions: Allergies Allergy/AdvReac Type Severity Reaction Status Date / Time sulfamethoxazole Allergy Verified 10/14/17 13:02 [From Bactrim] trimethoprim [From Bactrim] Allergy Verified 10/14/17 13:02 Medications: Current Medications Acetaminophen (Tylenol) 650 mg PO Q4H PRN PRN Reason: Headache/Fever or Pain Hydrocodone Bitart/Acetaminophen ([place] 5/325) 1 tab PO Q4H PRN PRN Reason: Moderate Pain (4-6) Acidophilus (Floranex) 1 tab PO DAILY [facility] Last Admin: 10/18/17 09:25 Dose: 1 tab Al Hydroxide/Mg Hydroxide (Maalox) 30 ml PO Q6H PRN PRN Reason: Heartburn or Indigestion Artificial Tears (Tears Naturale) 0 drop EA EYE PRN PRN PRN Reason: Dry Eyes Aspirin (Aspirin) 325 mg PO DAILY [facility] Last Admin: 10/18/17 09:25 Dose: 325 mg Atenolol (Tenormin) 12.5 mg PO DAILY [facility] Last Admin: 10/18/17 09:25 Dose: 12.5 mg Coenzyme Q10 (Coenzyme Q10) 200 mg PO DAILY [facility] Last Admin: 10/18/17 09:24 Dose: 200 mg Doxylamine Succinate (Unisom) 12.5 mg PO HS PRN PRN Reason: Insomnia Enoxaparin Sodium (Lovenox) 40 mg SC 0900 [facility] Last Admin: 10/18/17 09:26 Dose: 40 mg Famotidine (Pepcid) 20 mg PO BID [facility] Last Admin: 10/18/17 09:26 Dose: 20 mg Furosemide (Lasix) 20 mg PO DAILY [facility] Last Admin: 10/18/17 09:26 Dose: 20 mg Hydralazine HCl (Apresoline) 10 mg SLOW IVP Q4H PRN PRN Reason: Systolic BP > 180 Lisinopril (Zestril) 10 mg PO DAILY [facility] Last Admin: 10/18/17 09:26 Dose: 10 mg Loperamide HCl (Imodium) 2 mg PO PRN PRN PRN Reason: Diarrhea/Loose Stools Loratadine (Claritin) 10 mg PO DAILY [facility] Last Admin: 10/18/17 09:25 Dose: 10 mg Magnesium Hydroxide (Milk Of Magnesium) 30 ml PO DAILYPRN PRN PRN Reason: Constipation Mineral Oil/White Petrolatum (Eucerin Cream) 0 gm TOP BIDPRN PRN PRN Reason: Dry Skin Mometasone Furoate/Formoterol Fumar (Dulera 200 Mcg/5 Mcg Inhaler) 2 puff INH BID-RT [facility] Last Admin: 10/18/17 09:46 Dose: 2 puff Montelukast Sodium (Singulair) 10 mg PO DAILY [facility] Last Admin: 10/18/17 09:24 Dose: 10 mg Nitroglycerin (Nitrostat) 0.4 mg SL Q5MIN PRN PRN Reason: Chest Pain Ondansetron HCl (Zofran Odt) 4 mg PO Q6H PRN PRN Reason: Nausea/Vomiting Ondansetron HCl (Zofran) 4 mg IVP Q6H PRN PRN Reason: Nausea/Vomiting Pitavastatin [Livalo (] 2 Mg) 0 each PO [id number] [facility] Phenol (Chloraseptic [place] 180 Ml Bot) 0 ml PO PRN PRN PRN Reason: Sore Throat Potassium Chloride (Klor-Con 10) 10 meq PO DAILY [facility] Last Admin: 10/18/17 09:25 Dose: 10 meq Psyllium Hydrophilic Mucilloid (Metamucil) 1 pk PO DAILY [facility] Last Admin: 10/18/17 09:27 Dose: 1 pk Senna (Senokot) 2 tab PO HSPRN PRN PRN Reason: Constipation Sodium Chloride ([place] Nasal [place] 0.65%) 0 ml EA NARE QIDPRN PRN PRN Reason: Nasal Congestion Sodium Chloride (Flush - Normal Saline) 10 ml IVF Q12HR [facility] Last Admin: 10/18/17 09:39 Dose: Not Given Sodium Chloride (Flush - Normal Saline) 10 ml IVF PRN PRN PRN Reason: Saline Flush Thyroid ([place] Thyroid) 90 mg PO DAILY [facility] Last Admin: 10/18/17 09:25 Dose: 90 mg Zolpidem Tartrate (Ambien) 5 mg PO HSPRN PRN PRN Reason: Insomnia
[2017-10-19] MEDS: Mometasone/Formoterol 120 PUFF INHALER INH SCH ×2 (06:48→20:34)
[2017-10-19] MEDS: Enoxaparin Sodium 40 MG/0.4 ML SYRINGE SC SCH (09:08)
[2017-10-19] MEDS: Potassium Chloride 10 MEQ TAB PO SCH (09:09)
[2017-10-19] MEDS: Famotidine 20 MG TAB PO SCH ×2 (09:09→20:33)
[2017-10-19] MEDS: Loratadine 10 MG TAB PO SCH (09:09)
[2017-10-19] MEDS: Ubidecarenone 50 MG CAP PO SCH (09:09)
[2017-10-19] MEDS: Montelukast Sodium 10 mg Tablet PO SCH (09:09)
[2017-10-19] MEDS: Furosemide 20 MG TAB PO SCH (09:09)
[2017-10-19] MEDS: Aspirin 325 MG TAB PO SCH (09:09)
[2017-10-19] MEDS: Atenolol 25 MG TAB PO SCH (09:11)
[2017-10-19] MEDS: Metamucil PACK PO SCH (09:11)
[2017-10-19] MEDS: Lisinopril 10 MG TAB PO SCH (09:13)
[2017-10-19] MEDS: Lactinex Tablet PO SCH (10:33)
[2017-10-19] MEDS: PITAVASTATIN 2 MG PO SCH (10:34)
--- NOTE | 2017-10-19 11:01 | PDOC.PN ---
- Subjective Encounter Start Date: 10/19/17 Encounter Start Time: 09:00 Subjective: no sob or palp -: no new weakness, is sitting on bed, had her breakfast this am -: is amb with PT - Objective Resuscitation Status: Resuscitation Status FULL:Full Resuscitation MAR Reviewed: Yes Vital Signs & Weight: Vital Signs (12 hours) Temp Pulse Resp BP BP BP Pulse Ox 10/19/17 09:13 119/67 10/19/17 09:11 69 119/67 10/19/17 08:04 98.2 F 69 18 119/67 91 L 10/19/17 05:00 98.1 F 59 L 20 99/52 L 93 L Weight Weight 156 lb 8.451 oz I&O: 10/18/17 10/19/17 10/20/17 06:59 06:59 06:59 Intake Total 740 Balance 740 Result Diagrams: 10/15/17 04:48 10/15/17 04:48 Phys Exam - Physical Examination HEENT: PERRLA, moist MMs Neck: no JVD, supple Respiratory: no wheezing, no rales Cardiovascular: RRR, no significant murmur Gastrointestinal: soft, non-tender, positive bowel sounds Musculoskeletal: no edema, pulses present Neurological: non-focal, moves all 4 limbs Psychiatric: normal affect, A&O x 3 Dx/Plan (1) Acute CVA (cerebrovascular accident) Code(s): I63.9 - CEREBRAL INFARCTION, UNSPECIFIED Status: Acute Comment: embolic infarcts to right temp, occipital lobe and precentral gyrus of frontal lobe (2) CAD (coronary artery disease) Code(s): I25.10 - ATHSCL HEART DISEASE OF [place] CORONARY ARTERY W/O ANG PCTRS Status: Chronic Qualifiers: Coronary Disease-Associated Artery/Lesion type: bypass graft [place] vs. transplanted heart: [place] heart Associated angina: without angina Qualified Code(s): I25.810 - Atherosclerosis of coronary artery bypass graft(s) without angina pectoris (3) COPD (chronic obstructive pulmonary disease) Status: Chronic Qualifiers: COPD type: unspecified COPD Qualified Code(s): J44.9 - Chronic obstructive pulmonary disease, unspecified (4) Carotid atherosclerosis Code(s): I65.29 - OCCLUSION AND STENOSIS OF UNSPECIFIED CAROTID ARTERY Status : Chronic Comment: has left carotid endartectomy, f/u with (5) Dyslipidemia Code(s): E78.5 - HYPERLIPIDEMIA, UNSPECIFIED Status: Chronic (6) Hypertension Code(s): I10 - ESSENTIAL (PRIMARY) HYPERTENSION Status: Chronic Qualifiers: Hypertension type: essential hypertension Qualified Code(s): I10 - Essential (primary) hypertension (7) Hypothyroidism Code(s): E03.9 - HYPOTHYROIDISM, UNSPECIFIED Status: Chronic Qualifiers: Hypothyroidism type: unspecified Qualified Code(s): E03.9 - Hypothyroidism , unspecified - Plan for [facility] in am, d/w ...TTE showed no thrombus, [place] is dilated -: event monitor will be set up by 's office -: is on asp and livalo -: continue atenolol, lisinopril and lasix as before -: to amb as tolerated, awaiting rehab eval * . Review of Systems - Medications/Allergies Allergies/Adverse Reactions: Allergies Allergy/AdvReac Type Severity Reaction Status Date / Time sulfamethoxazole Allergy Verified 10/14/17 13:02 [From Bactrim] trimethoprim [From Bactrim] Allergy Verified 10/14/17 13:02 Medications: Current Medications Acetaminophen (Tylenol) 650 mg PO Q4H PRN PRN Reason: Headache/Fever or Pain Hydrocodone Bitart/Acetaminophen ([place] 5/325) 1 tab PO Q4H PRN PRN Reason: Moderate Pain (4-6) Acidophilus (Floranex) 1 tab PO DAILY [facility] Last Admin: 10/19/17 10:33 Dose: 1 tab Al Hydroxide/Mg Hydroxide (Maalox) 30 ml PO Q6H PRN PRN Reason: Heartburn or Indigestion Artificial Tears (Tears Naturale) 0 drop EA EYE PRN PRN PRN Reason: Dry Eyes Aspirin (Aspirin) 325 mg PO DAILY [facility] Last Admin: 10/19/17 09:09 Dose: 325 mg Atenolol (Tenormin) 12.5 mg PO DAILY [facility] Last Admin: 10/19/17 09:11 Dose: 12.5 mg Coenzyme Q10 (Coenzyme Q10) 200 mg PO DAILY [facility] Last Admin: 10/19/17 09:09 Dose: 200 mg Doxylamine Succinate (Unisom) 12.5 mg PO HS PRN PRN Reason: Insomnia Enoxaparin Sodium (Lovenox) 40 mg SC 0900 [facility] Last Admin: 10/19/17 09:08 Dose: 40 mg Famotidine (Pepcid) 20 mg PO BID [facility] Last Admin: 10/19/17 09:09 Dose: 20 mg Furosemide (Lasix) 20 mg PO DAILY [facility] Last Admin: 10/19/17 09:09 Dose: 20 mg Hydralazine HCl (Apresoline) 10 mg SLOW IVP Q4H PRN PRN Reason: Systolic BP > 180 Lisinopril (Zestril) 10 mg PO DAILY [facility] Last Admin: 10/19/17 09:13 Dose: 10 mg Loperamide HCl (Imodium) 2 mg PO PRN PRN PRN Reason: Diarrhea/Loose Stools Loratadine (Claritin) 10 mg PO DAILY [facility] Last Admin: 10/19/17 09:09 Dose: 10 mg Magnesium Hydroxide (Milk Of Magnesium) 30 ml PO DAILYPRN PRN PRN Reason: Constipation Mineral Oil/White Petrolatum (Eucerin Cream) 0 gm TOP BIDPRN PRN PRN Reason: Dry Skin Mometasone Furoate/Formoterol Fumar (Dulera 200 Mcg/5 Mcg Inhaler) 2 puff INH BID-RT [facility] Last Admin: 10/19/17 06:48 Dose: 2 puff Montelukast Sodium (Singulair) 10 mg PO DAILY [facility] Last Admin: 10/19/17 09:09 Dose: 10 mg Nitroglycerin (Nitrostat) 0.4 mg SL Q5MIN PRN PRN Reason: Chest Pain Ondansetron HCl (Zofran Odt) 4 mg PO Q6H PRN PRN Reason: Nausea/Vomiting Ondansetron HCl (Zofran) 4 mg IVP Q6H PRN PRN Reason: Nausea/Vomiting Pitavastatin [Livalo (] 2 Mg) 0 each PO MoWeFr [facility] Last Admin: 10/19/17 10:34 Dose: 1 each Phenol (Chloraseptic [place] 180 Ml Bot) 0 ml PO PRN PRN PRN Reason: Sore Throat Potassium Chloride (Klor-Con 10) 10 meq PO DAILY [facility] Last Admin: 10/19/17 09:09 Dose: 10 meq Psyllium Hydrophilic Mucilloid (Metamucil) 1 pk PO DAILY [facility] Last Admin: 10/19/17 09:11 Dose: 1 pk Senna (Senokot) 2 tab PO HSPRN PRN PRN Reason: Constipation Sodium Chloride ([place] Nasal [place] 0.65%) 0 ml EA NARE QIDPRN PRN PRN Reason: Nasal Congestion Sodium Chloride (Flush - Normal Saline) 10 ml IVF Q12HR [facility] Last Admin: 10/19/17 09:14 Dose: Not Given Sodium Chloride (Flush - Normal Saline) 10 ml IVF PRN PRN PRN Reason: Saline Flush Thyroid ([place] Thyroid) 90 mg PO DAILY [facility] Last Admin: 10/19/17 09:13 Dose: 90 mg Zolpidem Tartrate (Ambien) 5 mg PO HSPRN PRN PRN Reason: Insomnia
[2017-10-19] MEDS ORDERED: PITAVASTATIN 2 MG PO SCH (21:00)
[2017-10-20] MEDS: Mometasone/Formoterol 120 PUFF INHALER INH SCH ×2 (06:47→18:46)
[2017-10-20] MEDS: Atenolol 25 MG TAB PO SCH (07:53)
--- NOTE | 2017-10-20 12:38 | PDOC.PN ---
- Subjective Encounter Start Date: 10/20/17 Encounter Start Time: 09:20 Subjective: is sitting on bed, no complaints -: feels better, is npo for MARK - Objective Resuscitation Status: Resuscitation Status FULL:Full Resuscitation MAR Reviewed: Yes Vital Signs & Weight: Vital Signs (12 hours) Temp Pulse Resp BP BP BP BP 10/20/17 11:53 195/94 H 120/66 10/20/17 11:49 98 F 62 16 120/68 10/20/17 08:46 97.6 F 77 18 10/20/17 08:00 97.6 F 77 18 155/60 H 10/20/17 07:53 72 155/60 H 10/20/17 04:00 97.5 F L 74 18 154/111 H Pulse Ox 10/20/17 11:53 10/20/17 11:49 90 L 10/20/17 08:46 90 L 10/20/17 08:00 90 L 10/20/17 07:53 10/20/17 04:00 91 L Weight Weight 156 lb 8.451 oz I&O: 10/19/17 10/20/17 10/21/17 06:59 06:59 06:59 Intake Total 1000 Balance 1000 Result Diagrams: 10/15/17 04:48 10/15/17 04:48 Phys Exam - Physical Examination HEENT: PERRLA, moist MMs Neck: no JVD, supple Respiratory: no wheezing, no rales Cardiovascular: RRR, no significant murmur Gastrointestinal: soft, non-tender, positive bowel sounds Musculoskeletal: no edema, pulses present Neurological: non-focal, moves all 4 limbs Psychiatric: normal affect, A&O x 3 Dx/Plan (1) Acute CVA (cerebrovascular accident) Code(s): I63.9 - CEREBRAL INFARCTION, UNSPECIFIED Status: Acute Comment: embolic infarcts to right temp, occipital lobe and precentral gyrus of frontal lobe (2) CAD (coronary artery disease) Code(s): I25.10 - ATHSCL HEART DISEASE OF [place] CORONARY ARTERY W/O ANG PCTRS Status: Chronic Qualifiers: Coronary Disease-Associated Artery/Lesion type: bypass graft [place] vs. transplanted heart: [place] heart Associated angina: without angina Qualified Code(s): I25.810 - Atherosclerosis of coronary artery bypass graft(s) without angina pectoris (3) COPD (chronic obstructive pulmonary disease) Status: Chronic Qualifiers: COPD type: unspecified COPD Qualified Code(s): J44.9 - Chronic obstructive pulmonary disease, unspecified (4) Carotid atherosclerosis Code(s): I65.29 - OCCLUSION AND STENOSIS OF UNSPECIFIED CAROTID ARTERY Status : Chronic Comment: has left carotid endartectomy, f/u with (5) Dyslipidemia Code(s): E78.5 - HYPERLIPIDEMIA, UNSPECIFIED Status: Chronic (6) Hypertension Code(s): I10 - ESSENTIAL (PRIMARY) HYPERTENSION Status: Chronic Qualifiers: Hypertension type: essential hypertension Qualified Code(s): I10 - Essential (primary) hypertension (7) Hypothyroidism Code(s): E03.9 - HYPOTHYROIDISM, UNSPECIFIED Status: Chronic Qualifiers: Hypothyroidism type: unspecified Qualified Code(s): E03.9 - Hypothyroidism , unspecified - Plan hemostable -: has been accepted to rehab -: await MARK results, is currently on asp and livalo -: no focal motor deficits clinically -: to continue atenolol, lisinopril and low dose lasix * . Review of Systems - Medications/Allergies Allergies/Adverse Reactions: Allergies Allergy/AdvReac Type Severity Reaction Status Date / Time sulfamethoxazole Allergy Verified 10/14/17 13:02 [From Bactrim] trimethoprim [From Bactrim] Allergy Verified 10/14/17 13:02 Medications: Current Medications Acetaminophen (Tylenol) 650 mg PO Q4H PRN PRN Reason: Headache/Fever or Pain Hydrocodone Bitart/Acetaminophen ([place] 5/325) 1 tab PO Q4H PRN PRN Reason: Moderate Pain (4-6) Acidophilus (Floranex) 1 tab PO DAILY [facility] Last Admin: 10/19/17 10:33 Dose: 1 tab Al Hydroxide/Mg Hydroxide (Maalox) 30 ml PO Q6H PRN PRN Reason: Heartburn or Indigestion Artificial Tears (Tears Naturale) 0 drop EA EYE PRN PRN PRN Reason: Dry Eyes Aspirin (Aspirin) 325 mg PO DAILY [facility] Last Admin: 10/19/17 09:09 Dose: 325 mg Atenolol (Tenormin) 12.5 mg PO DAILY [facility] Last Admin: 10/20/17 07:53 Dose: 12.5 mg Coenzyme Q10 (Coenzyme Q10) 200 mg PO DAILY [facility] Last Admin: 10/19/17 09:09 Dose: 200 mg Doxylamine Succinate (Unisom) 12.5 mg PO HS PRN PRN Reason: Insomnia Enoxaparin Sodium (Lovenox) 40 mg SC 0900 [facility] Last Admin: 10/19/17 09:08 Dose: 40 mg Famotidine (Pepcid) 20 mg PO BID [facility] Last Admin: 10/19/17 20:33 Dose: 20 mg Furosemide (Lasix) 20 mg PO DAILY [facility] Last Admin: 10/19/17 09:09 Dose: 20 mg Hydralazine HCl (Apresoline) 10 mg SLOW IVP Q4H PRN PRN Reason: Systolic BP > 180 Lisinopril (Zestril) 10 mg PO DAILY [facility] Last Admin: 10/19/17 09:13 Dose: 10 mg Loperamide HCl (Imodium) 2 mg PO PRN PRN PRN Reason: Diarrhea/Loose Stools Loratadine (Claritin) 10 mg PO DAILY [facility] Last Admin: 10/19/17 09:09 Dose: 10 mg Magnesium Hydroxide (Milk Of Magnesium) 30 ml PO DAILYPRN PRN PRN Reason: Constipation Mineral Oil/White Petrolatum (Eucerin Cream) 0 gm TOP BIDPRN PRN PRN Reason: Dry Skin Mometasone Furoate/Formoterol Fumar (Dulera 200 Mcg/5 Mcg Inhaler) 2 puff INH BID-RT [facility] Last Admin: 10/20/17 06:47 Dose: 2 puff Montelukast Sodium (Singulair) 10 mg PO DAILY [facility] Last Admin: 10/19/17 09:09 Dose: 10 mg Nitroglycerin (Nitrostat) 0.4 mg SL Q5MIN PRN PRN Reason: Chest Pain Ondansetron HCl (Zofran Odt) 4 mg PO Q6H PRN PRN Reason: Nausea/Vomiting Ondansetron HCl (Zofran) 4 mg IVP Q6H PRN PRN Reason: Nausea/Vomiting Pitavastatin [Livalo (] 2 Mg) 0 each PO MoWeFr [facility] Last Admin: 10/19/17 10:34 Dose: 1 each Phenol (Chloraseptic [place] 180 Ml Bot) 0 ml PO PRN PRN PRN Reason: Sore Throat Potassium Chloride (Klor-Con 10) 10 meq PO DAILY [facility] Last Admin: 10/19/17 09:09 Dose: 10 meq Psyllium Hydrophilic Mucilloid (Metamucil) 1 pk PO DAILY [facility] Last Admin: 10/19/17 09:11 Dose: 1 pk Senna (Senokot) 2 tab PO HSPRN PRN PRN Reason: Constipation Sodium Chloride ([place] Nasal [place] 0.65%) 0 ml EA NARE QIDPRN PRN PRN Reason: Nasal Congestion Sodium Chloride (Flush - Normal Saline) 10 ml IVF Q12HR [facility] Last Admin: 10/19/17 20:33 Dose: Not Given Sodium Chloride (Flush - Normal Saline) 10 ml IVF PRN PRN PRN Reason: Saline Flush Thyroid ([place] Thyroid) 90 mg PO DAILY [facility] Last Admin: 10/19/17 09:13 Dose: 90 mg Zolpidem Tartrate (Ambien) 5 mg PO HSPRN PRN PRN Reason: Insomnia
[2017-10-20] MEDS ORDERED: PHENYLEPHRINE-NS 100 MCG/ML 10 ML SYRINGE ONE (13:07)
[2017-10-20] MEDS ORDERED: PROPOFOL 20 ML ONE (13:07)
[2017-10-20] MEDS: Lisinopril 10 MG TAB PO SCH (15:12)
[2017-10-20] MEDS: Ubidecarenone 50 MG CAP PO SCH (15:12)
[2017-10-20] MEDS: Enoxaparin Sodium 40 MG/0.4 ML SYRINGE SC SCH (15:12)
[2017-10-20] MEDS: Potassium Chloride 10 MEQ TAB PO SCH (15:13)
[2017-10-20] MEDS: Loratadine 10 MG TAB PO SCH (15:13)
[2017-10-20] MEDS: Montelukast Sodium 10 mg Tablet PO SCH (15:13)
[2017-10-20] MEDS: Furosemide 20 MG TAB PO SCH (15:13)
[2017-10-20] MEDS: Aspirin 325 MG TAB PO SCH (15:14)
[2017-10-20] MEDS: Famotidine 20 MG TAB PO SCH ×2 (15:15→20:58)
[2017-10-20] MEDS: Metamucil PACK PO SCH (15:15)
[2017-10-20] MEDS: Lactinex Tablet PO SCH (15:28)
[2017-10-20] MEDS ORDERED: cefTRIAXone\\ROCEPHIN 1 GM in Sodium Chloride 0.9% 100 ML IVPB SCH (16:00)
[2017-10-20] MEDS ORDERED: Vancomycin HCl 1.5 GM in Sodium Chloride 0.9% 250 ML 300 ML IVPB SCH (17:00)
--- NOTE | 2017-10-20 21:58 | ECHO ---
82-year-old woman with a cerebrovascular accident and mitral regurgitation. The patient taken to the PACU, and was sedated by anesthesiology. A transesophageal probe was placed in the esophagus and stomach. Echocardiograms were obtained and the transesophageal probe removed. FINDINGS 1. Normal left ventricular systolic function. 2. Aortic valve leaflets are mildly thickened. 3. Normal mitral valve is structurally with a 1 cm echogenic mass very suggestive of a vegetation. 4. Moderate mitral regurgitation. 5. Mild tricuspid regurgitation. 6. No formed thrombus in the left atrium or left atrial appendage. 7. Atherosclerotic debris in the descending aorta. IMPRESSION: 1 cm mass attached to the posterior mitral valve leaflet very suggestive of vegetation with moderate mitral regurgitation. MTDD
--- NOTE | 2017-10-20 22:09 | CON ---
DATE OF CONSULTATION: 10/20/2017 REASON FOR CONSULTATION: Findings in MRI of brain, possible endocarditis. HISTORY OF PRESENT ILLNESS: An 82-year-old appears to be the first admission to [facility], who has history of COPD, prior smoking, coronary artery disease with prior bypass graft surgery, and carotid endarterectomy who developed what she describes as sensation of shakiness in her body both i nside and outside, some blurred vision, and difficulty with coordination. She tried to call 911, but could not. Eventually, she was able to call paramedics and they brought her to [facility] Emergency Room. She was found to have hemianopsia and CT was abnormal. She was transferred to [facility]. Initial BP 180/80. She had a CT angio of [place], which showed no evid ence of blood clot. Initial impression was CVA-like symptoms with abnormal CT of brain concerning fo r CVA, COPD. She was admitted to the stroke floor. MRI of brain was obtained. The MRI demonstrated a multifocal right-sided infarctions involving right precentral gyrus, right medial occipital lobe, right thalamus, right inferior temporal lobe, mesial right temporal lobe. All the areas were on the right side. The patient has been given aspirin, enoxaparin, lisinopril, nitroglycerin, and vancomyci n. Currently, she is sitting up in bed. She feels well. Still with the visual issues. No headache s. No sore throat, odynophagia, dysphagia. No toothache, no back pain. No dyspnea or chest pain. No abdominal pain, diarrhea, genitourinary symptoms. Voiding without difficulty. No joint symptoms. PAST MEDICAL HISTORY: COPD, coronary artery disease, bypass graft surgery, hypothyroidism, allergic rhinitis, dyslipidemia. PAST SURGICAL HISTORY: Coronary artery bypass graft; endarterectomy, carotid area; hysterectomy; lum pectomy x2. SOCIAL HISTORY: Former smoker, quit in 2010. Drinks occasionally and lives in [place] by herself. Lost her in 1993. 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 FAMILY HISTORY: Noncontributory. ALLERGIES: BACTRIM. PHYSICAL EXAMINATION: VITAL SIGNS: Essentially normal. She has been afebrile. BP 150/50, pulse 75, respirations 16, O2 s at 94%. SKIN: Essentially normal. No lymphadenopathy. HEENT: Ocular movements conjugate. Pupils are equal. She has homonymous hemianopsia on the left si de. NECK: Supple. LUNGS: Clear. HEART: S1, S2 regular rate with a soft aortic murmur. ABDOMEN: Soft. Not distended or tender. No ascites. No bladder distention. EXTREMITIES: No joint inflammatory activity. Pulses are 1+ in dorsalis pedis. Plantar responses ar e flexor. NEUROLOGIC: Cognitive function appears to be intact. LABORATORY DATA: White cell count 8.2. Sodium 138, creatinine 0.63. Liver profile normal. Microbi ology: No blood cultures were submitted. ASSESSMENT: Multiple cerebrovascular accidents, right hemisphere, consistent with carotid atheroembo lism. DISCUSSION: Endocarditis appears to be unlikely. She does not have inflammatory findings on the cli nical laboratory exam. The embolic phenomenon are all on the right side, which are suggestive of car otid atheroembolism. So, I do not recommend a workup for infectious endocarditis.
[2017-10-21] MEDS: Mometasone/Formoterol 120 PUFF INHALER INH SCH ×2 (06:54→19:07)
--- NOTE | 2017-10-21 08:49 | CON ---
DATE OF CONSULTATION: 10/21/2017 REASON FOR CONSULTATION: History of coronary artery disease, history of stroke, probable vegetation on mitral valve. HISTORY OF PRESENT ILLNESS: Ms. Mar is a very pleasant 82-year-old woman. She was admitted to [facility] in transfer from [place] with ischemic stroke. The patient initially presented to [facility]. She initially had a shakiness in her body inside and outside, blurred vision, difficulty with lifestyle coordinator rdination. She tried to call 911, but could not; ultimately able to call paramedics, who brought her to [facility] Emergency Room. She was found to have hemianopsia, and CT was abnormal. So, tra nsferred to [facility]. She had a CT angio of the [place], no evidence of blood cl ot. MRI demonstrated multifocal right-sided infarctions involving right medial-occipital lobe, right thalamus, right inferior temporal lobe, right medial, right temporal lobe, on the right side. The s ource of the event was unclear. She had carotid Doppler showing mild plaque, but no obstruction. As part of the evaluation, she underwent a transesophageal echo done yesterday, which looked like a veg etation on the posterior leaflet of the mitral valve. The patient was started on antibiotics. There is no fever or chills or other symptoms of infection. PAST MEDICAL HISTORY: 1. History of coronary artery bypass grafting x1 for calcified ostial right coronary stenosis. 2. History of carotid arterial disease. 3. History of hypercholesterolemia. 4. History of hypertension. MEDICATIONS: Prior to admission, 1. Livalo. 2. Furosemide. 3. Atenolol. 4. Aspirin. 5. Singulair. ALLERGIES: SULFA AND TRIMETHOPRIM. REVIEW OF SYSTEMS: Constitutional: No significant weight gain or loss. Vision: No changes. Heari ng: No changes. Pulmonary: No cough or wheezing. Gastrointestinal: No nausea, vomiting, diarrhea . Skin: No rashes. Neurologic: As outlined above. PHYSICAL EXAMINATION: GENERAL: This is a pleasant 82-year-old woman in no distress. VITAL SIGNS: Blood pressure is variable, most recently 123/50 followed by 128/66, pulse 80 and it is regular. HEENT: Sclerae nonicteric. Mouth, mucous membranes moist. NECK: Supple, no lymphadenopathy. LUNGS: Clear. No wheezing, rales, or rhonchi. CARDIAC: Normal S1 and normal S2. There is a soft systolic murmur, left upper sternal border. No d iastolic murmur, no S3. ABDOMEN: Soft, nontender. EXTREMITIES: No clubbing or cyanosis. There is no edema. PERTINENT LABORATORY AND X-RAY FINDINGS: The white count is 8.2. The creatinine 0.6. EKG is sinus rhythm. There have been no atrial arrhythmias. ASSESSMENT: 1. Multiple ischemic strokes on the right side. 2. Nonobstructive plaque in the carotid, upper normal velocities, right internal carotid artery. 3. No previous bypass. 4. No evidence of any atrial arrhythmias. PLAN: 1. Blood cultures have been obtained. 2. ? Continue antibiotics versus stopping antibiotics. 3. Continue to monitor the patient for now. 4. ? this patient needs to have carotid arteries further imaged.
[2017-10-21] MEDS: Aspirin 325 MG TAB PO SCH (08:57)
[2017-10-21] MEDS: Atenolol 25 MG TAB PO SCH (08:58)
[2017-10-21] MEDS: Famotidine 20 MG TAB PO SCH ×2 (08:58→20:05)
[2017-10-21] MEDS: Montelukast Sodium 10 mg Tablet PO SCH (08:58)
[2017-10-21] MEDS: Ubidecarenone 50 MG CAP PO SCH (08:58)
[2017-10-21] MEDS: Loratadine 10 MG TAB PO SCH (08:59)
[2017-10-21] MEDS: Lisinopril 10 MG TAB PO SCH (08:59)
[2017-10-21] MEDS: PITAVASTATIN 2 MG PO SCH (08:59)
[2017-10-21] MEDS: Furosemide 20 MG TAB PO SCH (09:00)
[2017-10-21] MEDS: Potassium Chloride 10 MEQ TAB PO SCH (09:00)
[2017-10-21] MEDS: Enoxaparin Sodium 40 MG/0.4 ML SYRINGE SC SCH (09:01)
[2017-10-21] MEDS: Lactinex Tablet PO SCH (09:05)
[2017-10-21] MEDS: Metamucil PACK PO SCH (09:09)
--- NOTE | 2017-10-21 10:57 | PDOC.PN ---
- Subjective Encounter Start Date: 10/21/17 Encounter Start Time: 09:15 Subjective: is sitting on bed, no complaints - Objective Resuscitation Status: Resuscitation Status FULL:Full Resuscitation MAR Reviewed: Yes Vital Signs & Weight: Vital Signs (12 hours) Temp Pulse Resp BP BP BP Pulse Ox 10/21/17 08:59 128/66 10/21/17 08:58 82 128/66 10/21/17 07:21 98.1 F 82 16 128/66 86 L 10/21/17 04:51 97.7 F 75 16 123/50 L 92 L 10/21/17 00:13 97.4 F L 63 18 144/63 H 93 L Weight Weight 156 lb 8.451 oz I&O: 10/20/17 10/21/17 10/22/17 06:59 06:59 06:59 Intake Total 1000 500 Balance 1000 500 Result Diagrams: 10/15/17 04:48 10/15/17 04:48 Phys Exam - Physical Examination HEENT: PERRLA, moist MMs Neck: no JVD, supple Respiratory: no wheezing, no rales Cardiovascular: RRR, no significant murmur Gastrointestinal: soft, non-tender, positive bowel sounds Musculoskeletal: no edema, pulses present Neurological: non-focal, moves all 4 limbs Psychiatric: normal affect, A&O x 3 Dx/Plan (1) Acute CVA (cerebrovascular accident) Code(s): I63.9 - CEREBRAL INFARCTION, UNSPECIFIED Status: Acute Comment: embolic infarcts to right temp, occipital lobe and precentral gyrus of frontal lobe (2) CAD (coronary artery disease) Code(s): I25.10 - ATHSCL HEART DISEASE OF [place] CORONARY ARTERY W/O ANG PCTRS Status: Chronic Qualifiers: Coronary Disease-Associated Artery/Lesion type: bypass graft [place] vs. transplanted heart: [place] heart Associated angina: without angina Qualified Code(s): I25.810 - Atherosclerosis of coronary artery bypass graft(s) without angina pectoris (3) COPD (chronic obstructive pulmonary disease) Status: Chronic Qualifiers: COPD type: unspecified COPD Qualified Code(s): J44.9 - Chronic obstructive pulmonary disease, unspecified (4) Carotid atherosclerosis Code(s): I65.29 - OCCLUSION AND STENOSIS OF UNSPECIFIED CAROTID ARTERY Status : Chronic Comment: has left carotid endartectomy, f/u with (5) Dyslipidemia Code(s): E78.5 - HYPERLIPIDEMIA, UNSPECIFIED Status: Chronic (6) Hypertension Code(s): I10 - ESSENTIAL (PRIMARY) HYPERTENSION Status: Chronic Qualifiers: Hypertension type: essential hypertension Qualified Code(s): I10 - Essential (primary) hypertension (7) Hypothyroidism Code(s): E03.9 - HYPOTHYROIDISM, UNSPECIFIED Status: Chronic Qualifiers: Hypothyroidism type: unspecified Qualified Code(s): E03.9 - Hypothyroidism , unspecified - Plan d/w , will get CTA of carotids, 's opinion as well -: is currently on asp, livalo, atenolol, lisinopril -: dc plan is to rehab when work up is complete -: will get neuro opinion reg anticoagulation * . Review of Systems - Medications/Allergies Allergies/Adverse Reactions: Allergies Allergy/AdvReac Type Severity Reaction Status Date / Time sulfamethoxazole Allergy Verified 10/14/17 13:02 [From Bactrim] trimethoprim [From Bactrim] Allergy Verified 10/14/17 13:02 Medications: Current Medications Acetaminophen (Tylenol) 650 mg PO Q4H PRN PRN Reason: Headache/Fever or Pain Hydrocodone Bitart/Acetaminophen ([place] 5/325) 1 tab PO Q4H PRN PRN Reason: Moderate Pain (4-6) Acidophilus (Floranex) 1 tab PO DAILY [facility] Last Admin: 10/21/17 09:05 Dose: 1 tab Al Hydroxide/Mg Hydroxide (Maalox) 30 ml PO Q6H PRN PRN Reason: Heartburn or Indigestion Artificial Tears (Tears Naturale) 0 drop EA EYE PRN PRN PRN Reason: Dry Eyes Aspirin (Aspirin) 325 mg PO DAILY [facility] Last Admin: 10/21/17 08:57 Dose: 325 mg Atenolol (Tenormin) 12.5 mg PO DAILY [facility] Last Admin: 10/21/17 08:58 Dose: 12.5 mg Coenzyme Q10 (Coenzyme Q10) 200 mg PO DAILY [facility] Last Admin: 10/21/17 08:58 Dose: 200 mg Doxylamine Succinate (Unisom) 12.5 mg PO HS PRN PRN Reason: Insomnia Enoxaparin Sodium (Lovenox) 40 mg SC 0900 [facility] Last Admin: 10/21/17 09:01 Dose: 40 mg Famotidine (Pepcid) 20 mg PO BID [facility] Last Admin: 10/21/17 08:58 Dose: 20 mg Furosemide (Lasix) 20 mg PO DAILY [facility] Last Admin: 10/21/17 09:00 Dose: 20 mg Hydralazine HCl (Apresoline) 10 mg SLOW IVP Q4H PRN PRN Reason: Systolic BP > 180 Lisinopril (Zestril) 10 mg PO DAILY [facility] Last Admin: 10/21/17 08:59 Dose: 10 mg Loperamide HCl (Imodium) 2 mg PO PRN PRN PRN Reason: Diarrhea/Loose Stools Loratadine (Claritin) 10 mg PO DAILY [facility] Last Admin: 10/21/17 08:59 Dose: 10 mg Magnesium Hydroxide (Milk Of Magnesium) 30 ml PO DAILYPRN PRN PRN Reason: Constipation Mineral Oil/White Petrolatum (Eucerin Cream) 0 gm TOP BIDPRN PRN PRN Reason: Dry Skin Miscellaneous Medication (Pharmacy To Dose) 1 each IVPB PRN PRN PRN Reason: Pharmacy to dose Mometasone Furoate/Formoterol Fumar (Dulera 200 Mcg/5 Mcg Inhaler) 2 puff INH BID-RT [facility] Last Admin: 10/21/17 06:54 Dose: 2 puff Montelukast Sodium (Singulair) 10 mg PO DAILY [facility] Last Admin: 10/21/17 08:58 Dose: 10 mg Nitroglycerin (Nitrostat) 0.4 mg SL Q5MIN PRN PRN Reason: Chest Pain Ondansetron HCl (Zofran Odt) 4 mg PO Q6H PRN PRN Reason: Nausea/Vomiting Ondansetron HCl (Zofran) 4 mg IVP Q6H PRN PRN Reason: Nausea/Vomiting Pitavastatin [Livalo (] 2 Mg) 0 each PO MoWeFr [facility] Last Admin: 10/21/17 08:59 Dose: 1 each Phenol (Chloraseptic [place] 180 Ml Bot) 0 ml PO PRN PRN PRN Reason: Sore Throat Potassium Chloride (Klor-Con 10) 10 meq PO DAILY [facility] Last Admin: 10/21/17 09:00 Dose: 10 meq Psyllium Hydrophilic Mucilloid (Metamucil) 1 pk PO DAILY [facility] Last Admin: 10/21/17 09:09 Dose: 1 pk Senna (Senokot) 2 tab PO HSPRN PRN PRN Reason: Constipation Sodium Chloride ([place] Nasal [place] 0.65%) 0 ml EA NARE QIDPRN PRN PRN Reason: Nasal Congestion Sodium Chloride (Flush - Normal Saline) 10 ml IVF Q12HR [facility] Last Admin: 10/21/17 09:06 Dose: 10 ml Sodium Chloride (Flush - Normal Saline) 10 ml IVF PRN PRN PRN Reason: Saline Flush Thyroid ([place] Thyroid) 90 mg PO DAILY [facility] Last Admin: 10/21/17 09:00 Dose: 90 mg Zolpidem Tartrate (Ambien) 5 mg PO HSPRN PRN PRN Reason: Insomnia
[2017-10-21] MEDS ORDERED: ISOVUE-370 76%-LOCM 1 ML ONE (13:40)
--- NOTE | 2017-10-21 15:52 | CT ---
CT ANGIOGRAM OF THE NECK WITH IV CONTRAST AND 3D POSTPROCESSING: Date: 10/21/17 HISTORY: Right-sided CVA, carotid left endarterectomy. FINDINGS: There are atherosclerotic calcifications in the carotid and vertebrobasilar systems. A dominant right vertebral artery is present. There is good flow in the vertebral arteries, basilar artery, common ca rotid, and internal carotid arteries bilaterally. No significant stenosis is seen. No intimal flap is noted to suggest dissection. There are degenerative changes in the spine. There are emphysematous changes in the upper lung juarez . IMPRESSION: No evidence of significant stenosis in the common or internal carotid arteries in the neck. POS: ALAN
[2017-10-21] MEDS ORDERED: Vancomycin HCl 1 GM in Premix Bag 1 BAG IVPB SCH (17:00)
--- NOTE | 2017-10-21 19:09 | CON ---
DATE OF CONSULTATION: 10/21/2017 HISTORY OF PRESENT ILLNESS: This is a pleasant 82-year-old female patient, I have been following for several years for carotid artery disease. She had previously undergone a single coronary bypass gra ft to the right coronary artery and in the same period of time underwent a left carotid endarterectom y for high grade asymptomatic stenosis. Follow up ultrasound about 1 year ago showed good result fro m the endarterectomy and mild right carotid disease. She presented to the hospital with rather vague nonhemispheric symptoms and her workup eventually by MRI showed multiple small right-sided infarcts. Cardiac echo showed what appeared to be a vegetation of the mitral valve leaflet probably turned ou t to be just a calcification in the mitral valve and not related to her current symptoms. Because of her right-sided infarcts, it was felt to be artery may be responsible and an ultrasound showed mild elevation in velocities. A CT angiogram done today showed minimal right carotid disease and a normal left carotid. Both internal carotid arteries are quite tortuous as has her right common carotid art oskar, but there is no significant kinking in any of these vessels and her tortuosity is most likely du e to longstanding hypertension. PAST MEDICAL HISTORY: Otherwise, besides notable for hypertension, coronary artery disease includes hypothyroidism, dyslipidemia. 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 SOCIAL HISTORY: She is a nonsmoker. She does live alone. PHYSICAL EXAMINATION: GENERAL: At this time is significant for no carotid bruits. She does have a scar in her left neck. CARDIAC: Without ectopy. She does have a rather loud systolic murmur across her precordium. ABDOMEN: Obese and nontender. EXTREMITIES: Without edema. She has equal motor strength in both upper and lower extremities bilate rally. At this time, patient had cryptogenic a right-sided stroke. She has some calcification of her mitral valve leaflet, but I did not think that this is probably the etiology of her stroke. She has minima l right carotid disease. Consideration could be given to a perhaps adding a 37.5 mg of Plavix to her 81 mg of aspirin a day. Additionally, Aggrenox could be considered instead of aspirin and Plavix.
--- NOTE | 2017-10-21 19:38 | CON ---
DATE OF CONSULTATION: 10/21/2017 REASON FOR CONSULTATION: Recommendations for stroke prevention. HISTORY OF PRESENT ILLNESS: Ms. Mar is an 82-year-old female, who has been concerned f or evaluation and prior recommendations of stroke treatment. Apparently, the patient had presented o n 10/14/2017 with a complaint of shaking all over. She was having difficulty with using her hand and coordination. She also had noted blurry vision in her left eye at that time. After being presented to the hospital, she had a CT head without contrast and CT angiogram of the head done, which showed loss of shepard white matter differentiation in the right frontal lobe, presented with gyrus suggestive of acute ischemic infarct. She had MRI brain done, which showed multifocal right-sided infarction in volving the right mesial temporal lobe, inferior temporal lobe, occipital lobe, as well as a personal regards the frontal lobe. There was also small infarct in the left cerebellum. She since a CT elissa ogram of the neck which showed acute intracranial or extracranial vascular abnormality. She also had a transesophageal echocardiogram done which per report showed 1 cm mass attached to the posterior mi tral valve leaflet suggestive of vegetation with moderate mitral regurgitation and currently the nuha ent reports of improvement in her symptoms. She denies any headache, chest pain, palpitation, numbne ss, tingling or weakness. She continues to have some vision difficulty on the left eye. She also co ntinues to have some difficulty with hand coordination on the left side. PAST MEDICAL HISTORY: Significant for coronary artery disease, hypertension, COPD, hypothyroidism, o steoarthritis, dyslipidemia, GERD, osteoporosis and prior history of a GI bleed. PAST SURGICAL HISTORY: Significant for CABG, carotid endarterectomy, hysterectomy and lumpectomy. SOCIAL HISTORY: She is a former smoker. She drinks alcohol on occasions. She denies illicit drug u se. She currently lives independently. FAMILY HISTORY: Noncontributory. CURRENT MEDICATIONS: Please review MAR. ALLERGIES: Include SULFAMETHOXAZOLE and TRIMETHOPRIM. REVIEW OF SYSTEMS: As mentioned, which was negative. PHYSICAL EXAMINATION: VITAL SIGNS: Blood pressure of 151/70, pulse of 70, temperature of 97.1, respirations of 16, and O2 sats 92% on room air. GENERAL: Well-developed, well-nourished female in no apparent distress. RESPIRATORY: Clear to auscultation bilaterally. CARDIOVASCULAR: Regular rate and rhythm. NEUROLOGIC: Mental status: The patient is awake, alert, oriented x3. Speech and language: Fluent speech. Cranial nerves: Pupils are 3 mm and reactive. Visual juarez are intact. External muscles are intact. No nystagmus noted. Face is symmetric. Tongue and uvula midline. Motor exam showed no rmal tone and bulk with a 5/5 strength in both upper extremities. Sensory: Sensation is intact and symmetric. Deep tendon reflexes 2+ reflexes in both upper and lower extremities. Babinski: Plantar responses flexion bilaterally. Coordination intact to [id number] and finger tapping bilater ally. LABORATORY DATA: Reviewed, which included CBC, CMP, lipid profile, which is all essentially normal. IMAGING STUDIES: MRI brain without contrast was reviewed, which showed acute ischemic infarct involv ing the right occipital region, mesial temporal lobe, right posterior frontal lobe as well as left ce rebellum. IMPRESSION: 1. Cardioembolic ischemic infarct, multifocal cardioembolic ischemic infarct. 2. Mitral valve mass. ASSESSMENT AND PLAN: Ms. Mar is a pleasant 82-year-old female who presented with the s udden onset of incoordination and blurred vision. She had MRI brain done, which showed multifocal is chemic infarct involving both anterior and posterior circulation territories. Her echocardiogram did show mitral valve mass, which explains the cardioembolic phenomena. At this time, I would recommend starting her on anticoagulation therapy. I had a long discussion with the patient and her son who w as present at bedside. She has a prior history of GI bleed about 444-5 years ago which concerns them for starting her on anticoagulation therapy. I have explained that it may be a stroke she may be st arted on a lower dose of Eliquis with a close observation of her H&H count with her primary care phys lucy and if there is a drop in H&H count then the medication can be stopped. I have explained that without the anticoagulation therapy. There is a high risk for having recurrent stroke in this case t he benefit of anticoagulation therapy outweighs the risk and thus I would highly recommend starting h er on anticoagulation therapy. Continue with PT, OT. She is okay to be discharged to rehab on [facility] when medically stable.
[2017-10-22] MEDS: Mometasone/Formoterol 120 PUFF INHALER INH SCH (07:42)
[2017-10-22] MEDS ORDERED: Apixaban 2.5 MG TAB PO SCH (09:00)
[2017-10-22] MEDS: Potassium Chloride 10 MEQ TAB PO SCH (09:45)
[2017-10-22] MEDS: Lisinopril 10 MG TAB PO SCH (09:45)
[2017-10-22] MEDS: Loratadine 10 MG TAB PO SCH (09:45)
[2017-10-22] MEDS: Furosemide 20 MG TAB PO SCH (09:45)
[2017-10-22] MEDS: Atenolol 25 MG TAB PO SCH (09:46)
[2017-10-22] MEDS: Ubidecarenone 50 MG CAP PO SCH (09:47)
[2017-10-22] MEDS: Montelukast Sodium 10 mg Tablet PO SCH (09:47)
[2017-10-22] MEDS: Metamucil PACK PO SCH (09:47)
[2017-10-22] MEDS: Famotidine 20 MG TAB PO SCH (09:47)
[2017-10-22] MEDS: Lactinex Tablet PO SCH (09:47)
--- NOTE | 2017-10-22 09:52 | PRG ---
DATE OF SERVICE: 10/22/2017 SUBJECTIVE: Ms. Mar is doing better. No chest pain or pressure. No new neurologic findings. OBJECTIVE: VITAL SIGNS: Blood pressure 126/66, pulse 72, regular. LUNGS: Clear. CARDIAC: Normal S1, normal S2. ASSESSMENT: 1. Status post stroke. The patient was seen by Dr. Darling, Neurology. He was very helpful in terms o f identifying that there were multiple areas of infarct compatible with embolic event. The patient d oes have what looks like a vegetation on the mitral valve. This may be new or old, it is uncertain, but that could be the source of her symptoms also, statistically atrial arrhythmias are not a common cause of multi-embolic events. The patient has had history of arteriovenous malformation. What we d ecided to do is following, 1. Give her Eliquis 2.5 mg twice a day reduced dose for a month, then consider going to 5 mg twice a day if there is no bleeding. 2. At some point, could do outpatient monitoring. She has been monitored here for about a week and has not had any atrial arrhythmias, another option would be to implant a LINQ device.
--- NOTE | 2017-10-22 11:12 | PDOC.PN ---
- Subjective Encounter Start Date: 10/22/17 Encounter Start Time: 08:00 Subjective: feels better, is sitting on bed -: is amb with rw in room - Objective Resuscitation Status: Resuscitation Status FULL:Full Resuscitation MAR Reviewed: Yes Vital Signs & Weight: Vital Signs (12 hours) Temp Pulse Resp BP BP BP Pulse Ox 10/22/17 09:46 82 126/66 10/22/17 09:45 126/66 10/22/17 08:00 98.0 F 82 16 91 L 10/22/17 07:42 82 18 93 L 10/22/17 07:27 98.0 F 72 16 126/66 91 L 10/22/17 04:26 97.4 F L 62 16 131/55 L 94 L 10/22/17 00:23 98.1 F 62 18 147/57 H 93 L Weight Weight 156 lb 8.451 oz I&O: 10/21/17 10/22/17 10/23/17 06:59 06:59 06:59 Intake Total 500 1500 Balance 500 1500 Result Diagrams: 10/15/17 04:48 10/15/17 04:48 Phys Exam - Physical Examination HEENT: PERRLA, moist MMs Neck: no JVD, supple Respiratory: no wheezing, no rales Cardiovascular: RRR, no significant murmur Gastrointestinal: soft, non-tender, positive bowel sounds Musculoskeletal: no edema, pulses present Neurological: non-focal, moves all 4 limbs Psychiatric: A&O x 3 Dx/Plan (1) Acute CVA (cerebrovascular accident) Code(s): I63.9 - CEREBRAL INFARCTION, UNSPECIFIED Status: Acute Comment: embolic infarcts to right temp, occipital lobe and precentral gyrus of frontal lobe (2) CAD (coronary artery disease) Code(s): I25.10 - ATHSCL HEART DISEASE OF [place] CORONARY ARTERY W/O ANG PCTRS Status: Chronic Qualifiers: Coronary Disease-Associated Artery/Lesion type: bypass graft [place] vs. transplanted heart: [place] heart Associated angina: without angina Qualified Code(s): I25.810 - Atherosclerosis of coronary artery bypass graft(s) without angina pectoris (3) COPD (chronic obstructive pulmonary disease) Status: Chronic Qualifiers: COPD type: unspecified COPD Qualified Code(s): J44.9 - Chronic obstructive pulmonary disease, unspecified (4) Carotid atherosclerosis Code(s): I65.29 - OCCLUSION AND STENOSIS OF UNSPECIFIED CAROTID ARTERY Status : Chronic Comment: has left carotid endartectomy, f/u with (5) Dyslipidemia Code(s): E78.5 - HYPERLIPIDEMIA, UNSPECIFIED Status: Chronic (6) Hypertension Code(s): I10 - ESSENTIAL (PRIMARY) HYPERTENSION Status: Chronic Qualifiers: Hypertension type: essential hypertension Qualified Code(s): I10 - Essential (primary) hypertension (7) Hypothyroidism Code(s): E03.9 - HYPOTHYROIDISM, UNSPECIFIED Status: Chronic Qualifiers: Hypothyroidism type: unspecified Qualified Code(s): E03.9 - Hypothyroidism , unspecified - Plan started on low dose eliquis -: hemostable -: dc pt to rehab * . Review of Systems - Medications/Allergies Allergies/Adverse Reactions: Allergies Allergy/AdvReac Type Severity Reaction Status Date / Time sulfamethoxazole Allergy Verified 10/14/17 13:02 [From Bactrim] trimethoprim [From Bactrim] Allergy Verified 10/14/17 13:02 Medications: Current Medications Acetaminophen (Tylenol) 650 mg PO Q4H PRN PRN Reason: Headache/Fever or Pain Hydrocodone Bitart/Acetaminophen ([place] 5/325) 1 tab PO Q4H PRN PRN Reason: Moderate Pain (4-6) Acidophilus (Floranex) 1 tab PO DAILY [facility] Last Admin: 10/22/17 09:47 Dose: 1 tab Al Hydroxide/Mg Hydroxide (Maalox) 30 ml PO Q6H PRN PRN Reason: Heartburn or Indigestion Apixaban (Eliquis) 2.5 mg PO BID [facility] Last Admin: 10/22/17 09:45 Dose: 2.5 mg Artificial Tears (Tears Naturale) 0 drop EA EYE PRN PRN PRN Reason: Dry Eyes Aspirin (Aspirin Chewable) 81 mg PO DAILY [facility] Last Admin: 10/22/17 09:42 Dose: 81 mg Atenolol (Tenormin) 12.5 mg PO DAILY [facility] Last Admin: 10/22/17 09:46 Dose: 12.5 mg Coenzyme Q10 (Coenzyme Q10) 200 mg PO DAILY [facility] Last Admin: 10/22/17 09:47 Dose: 200 mg Doxylamine Succinate (Unisom) 12.5 mg PO HS PRN PRN Reason: Insomnia Famotidine (Pepcid) 20 mg PO BID [facility] Last Admin: 10/22/17 09:47 Dose: 20 mg Furosemide (Lasix) 20 mg PO DAILY [facility] Last Admin: 10/22/17 09:45 Dose: 20 mg Hydralazine HCl (Apresoline) 10 mg SLOW IVP Q4H PRN PRN Reason: Systolic BP > 180 Lisinopril (Zestril) 10 mg PO DAILY [facility] Last Admin: 10/22/17 09:45 Dose: 10 mg Loperamide HCl (Imodium) 2 mg PO PRN PRN PRN Reason: Diarrhea/Loose Stools Loratadine (Claritin) 10 mg PO DAILY [facility] Last Admin: 10/22/17 09:45 Dose: 10 mg Magnesium Hydroxide (Milk Of Magnesium) 30 ml PO DAILYPRN PRN PRN Reason: Constipation Mineral Oil/White Petrolatum (Eucerin Cream) 0 gm TOP BIDPRN PRN PRN Reason: Dry Skin Mometasone Furoate/Formoterol Fumar (Dulera 200 Mcg/5 Mcg Inhaler) 2 puff INH BID-RT [facility] Last Admin: 10/22/17 07:42 Dose: 2 puff Montelukast Sodium (Singulair) 10 mg PO DAILY [facility] Last Admin: 10/22/17 09:47 Dose: 10 mg Nitroglycerin (Nitrostat) 0.4 mg SL Q5MIN PRN PRN Reason: Chest Pain Ondansetron HCl (Zofran Odt) 4 mg PO Q6H PRN PRN Reason: Nausea/Vomiting Ondansetron HCl (Zofran) 4 mg IVP Q6H PRN PRN Reason: Nausea/Vomiting Pitavastatin [Livalo (] 2 Mg) 0 each PO MoWeFr [facility] Last Admin: 10/21/17 08:59 Dose: 1 each Phenol (Chloraseptic [place] 180 Ml Bot) 0 ml PO PRN PRN PRN Reason: Sore Throat Potassium Chloride (Klor-Con 10) 10 meq PO DAILY [facility] Last Admin: 10/22/17 09:45 Dose: 10 meq Psyllium Hydrophilic Mucilloid (Metamucil) 1 pk PO DAILY [facility] Last Admin: 10/22/17 09:47 Dose: 1 pk Senna (Senokot) 2 tab PO HSPRN PRN PRN Reason: Constipation Sodium Chloride ([place] Nasal [place] 0.65%) 0 ml EA NARE QIDPRN PRN PRN Reason: Nasal Congestion Sodium Chloride (Flush - Normal Saline) 10 ml IVF Q12HR [facility] Last Admin: 10/22/17 09:48 Dose: Not Given Sodium Chloride (Flush - Normal Saline) 10 ml IVF PRN PRN PRN Reason: Saline Flush Thyroid ([place] Thyroid) 90 mg PO DAILY [facility] Last Admin: 10/22/17 09:46 Dose: 90 mg Zolpidem Tartrate (Ambien) 5 mg PO HSPRN PRN PRN Reason: Insomnia
[2017-10-22 11:28] VITALS: TEMP 98.5
[2017-10-22 14:31] VITALS: BP 127/68
--- NOTE | 2017-10-22 22:44 | DIS ---
DATE OF ADMISSION: 10/14/2017 DATE OF DISCHARGE: 10/22/2017 DISCHARGE DISPOSITION: To inpatient rehabilitation. PRIMARY DISCHARGE DIAGNOSES: Embolic infarcts with acute cerebrovascular accident to right temporal lobe, occipital lobe, and precentral gyrus of frontal lobe. SECONDARY DISCHARGE DIAGNOSES: Chronic obstructive pulmonary disease, coronary artery disease with prior bypass, history of left carotid endarterectomy in the past, dyslipidemia, hypertension, hypothyroidism. PROCEDURES DONE DURING HOSPITALIZATION: Patient has had CT angio of the brain, which showed no significant stenosis at the level of [place]. There was loss of shepard-white differentiation involving right frontal lobe precentral gyrus with possibility of acute infarct in this region. Carotid Doppler showed upper normal velocities in the right internal carotid artery and scattered echogenic plaque bilaterally. MRI brain showed multifocal right-sided infarcts involving right mesial temporal lobe, inferior temporal lobe, medial occipital lobe and precentral gyrus of frontal lobe. This is suspected to be atheromatous emboli. Transthoracic echo done showed EF of 60%-65%, moderate mitral regurgitation, moderate aortic insufficiency, moderately elevated pulmonary artery pressure. No obvious thrombus was seen. CT angio neck done showed no evidence of significant stenosis in the common or internal carotid arteries in the neck. 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 DISCHARGE MEDICATIONS: Eliquis 2.5 mg p.o. twice daily, aspirin 81 mg p.o. daily, Tenormin 12.5 mg p.o. daily, budesonide inhaler once two puffs twice daily, doxylamine 12.5 mg p.o. at bedtime, Flovent 50 mcg nasal spray daily, Lasix 20 mg daily, probiotic 1 capsule daily, lisinopril 10 mg daily, Singulair 10 mg daily, pitavastatin 2 mg on Thursday, Wednesdays, and Fridays, potassium chloride 10 mEq p.o. daily, Metamucil 1 packet daily, [place] Thyroid 135 mg daily, CoQ10 200 mg daily. ALLERGIES: SULFA. INPATIENT CONSULTS: Dr. Burgos for Cardiology and Dr. Christensen for Infectious Disease, Dr. Mccormack for Cardiothoracic Surgery, Dr. Little Darling for Neurology. BRIEF COURSE DURING HOSPITALIZATION: Patient initially got admitted on the after she presented to [facility] ER with blurred vision and difficulty coordination. She was also feeling shaky all over. She was not able to use her hands. The patient was diagnosed with left hemianopsia and was suspected to have CVA and was transferred here for higher level of care. The patient had a CT angio of the brain and neck and also subsequently MRI as part of stroke workup. Her MRI revealed an embolic phenomenon with acute CVA in multiple areas of the brain. The patient had a transthoracic echo done, which did not reveal a thrombus. Transesophageal echo was done, which showed a 1 cm mass over the mitral valve with suspected vegetation. The patient did not have any signs or symptoms of fever or elevated white count or left shift. She had blood cultures drawn, which has not grown any organism. In view of this, a diagnosis of infective endocarditis was not entertained. She was evaluated by Dr. Christensen for the same. In view of her prior history of left carotid endarterectomy and most of her atheroemboli in the right side of the brain, the patient was also evaluated by for vascular surgery and Dr. Little Darling from Neurology. She has had history of prior AVM and bleeding years ago, and in view of this, she has been placed on low dose Eliquis to see the response. She will have H and H drawn every 4 days for the next 2 weeks at the rehab facility. If patient were to drop her hemoglobin, Eliquis has to be discontinued. If patient remains stable then her Eliquis might be escalated to 5 mg twice daily. She needs to follow up with Dr. Burgos and Dr. Darling as advised. A total of 35 minutes was spent on discharge plan. Please see a [id number] documentation on [facility] for the day of discharge. [facility]
== END 2017-10-22 15:32 | DRG 65 ==
LOC: ERS 09:18 → 2SE 10:45
PROVIDERS: ADMIT Internal Medicine; ATTEND Internal Medicine
PROC: B24BZZ4 Ultrasonography of Heart with Aorta, Transesophageal (ICD-10-PCS; principal; 2017-10-20)
DX: I63.9 Cerebral infarction, unspecified (principal); I25.810 Atherosclerosis of coronary artery bypass graft(s) without angina pectoris; H53.47 Heteronymous bilateral field defects; H53.8 Other visual disturbances; J44.9 Chronic obstructive pulmonary disease, unspecified; E03.9 Hypothyroidism, unspecified; E78.5 Hyperlipidemia, unspecified; K21.9 Gastro-esophageal reflux disease without esophagitis; M81.0 Age-related osteoporosis without current pathological fracture; Z95.1 Presence of aortocoronary bypass graft; Z87.891 Personal history of nicotine dependence; Z88.1 Allergy status to other antibiotic agents; Z79.82 Long term (current) use of aspirin; I16.0 Hypertensive urgency; F40.240 Claustrophobia; I05.8 Other rheumatic mitral valve diseases; I65.29 Occlusion and stenosis of unspecified carotid artery
CPT/HCPCS: 36415; 70496; 70498; 70551; 80053; 80061; 83090; 85025; 87040; 93306; 93312; 93880; 96374; A4216; G8978-GP-CM; G8979-GP-CK; G8987-GO-CJ; G8988-GO-CI; G8996-GN-CH; G8997-GN-CH; G8998-GN-CH; J0696; J1650; J2060; J2704; J3370; J7050